=== PATIENT | female | born 1965 | race Caucasian/White ===

== ENCOUNTER 2016-10-27 11:37 | Emergency (ER) | payer OTHER, BC ==
[2016-10-27] MEDS ORDERED: Sodium Chloride 0.9% 1,000 ML IV SCH (11:45)
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
[2016-10-27] MEDS ORDERED: Sodium Chloride 0.9% 10 ML Syringe FLUSH PRN (12:04)
[2016-10-27] MEDS ORDERED: Iopamidol 755 Mg/ML 100 ML Bottle IVPUSH ONE (12:04)
[2016-10-27] MEDS ORDERED: Iopamidol 755 MG/ML 50 ML Bottle IVPUSH ONE (12:04)
[2016-10-27] MEDS ORDERED: Sodium Chloride 0.9% 100 ML IV SCH (12:15)
[2016-10-27] MEDS ORDERED: HYDROmorphone 1 MG/ML Syringe IVPUSH ONE (12:52)
[2016-10-27] MEDS ORDERED: Metoclopramide 10 MG/2 ML SDV IVPUSH ONE (12:52)
--- NOTE | 2016-10-27 12:52 | CT ---
Head CT Technique: Multiple axial sections through the brain were obtained. Intravenous contrast was not utilized. Comparison: Previous head CT study of 08/08/16. Findings: Ventricles along with basal cisterns and sulci over the convexities are within normal limits for the patient's age. No abnormal parenchymal densities are seen. No evidence of intracranial hemorrhage. No midline shift or mass effect is seen. Bone window settings were reviewed which shows no acute calvarial abnormality. Visualized sinuses are clear. Impression: 1. No acute intracranial abnormality is appreciated. MRI brain could be considered to further evaluate patient's symptoms. Diagnostic code #1
[2016-10-27] MEDS ORDERED: Ketorolac 30 MG/ML SDV IVPUSH SCH (13:00)
--- NOTE | 2016-10-27 13:13 | CT ---
CT chest Technique: Multiple axial sections were obtained through the chest. Intravenous contrast was utilized. Study has been performed as an angiogram protocol. Additional imaging was obtained through the abdomen through the aortic bifurcation. Comparison: Thoracic aorta shows no aneurysmal dilatation. No dissection is seen. Visualized pulmonary arteries show no pulmonary embolism. No pericardial thickening is seen. No mediastinal or hilar mass or adenopathy is seen. No axillary adenopathy is seen. Lung shows mild emphysematous change. Lungs otherwise are clear. No pleural effusions or pneumothorax is seen. Bone window settings were reviewed which shows previous thoracic spine surgery. Mild scattered degenerative change within the spine is also seen. Liver shows fatty infiltration. Spleen appears within normal limits. Adrenal glands show no nodule. Kidneys show symmetric contrast enhancement without hydronephrosis or mass. Previous cholecystectomy is noted. Aorta shows no dissection or aneurysm. No retroperitoneal adenopathy or mesenteric abnormalities are seen. Impression: 1. No findings of aortic aneurysm or dissection. 2. No findings of discrete pulmonary embolism. 3. Other incidental findings as noted above. Nothing acute is appreciated on CT study of the chest and abdomen. Diagnostic code #2
--- NOTE | 2016-10-27 13:39 | CR ---
Chest: Portable view of the chest was obtained. Comparison: Previous chest x-ray of 11/05/15. Heart size and mediastinum are normal. Lungs are clear. Bony structures are grossly intact. Previous thoracic spine surgery is seen. Impression: 1. Nothing acute identified on portable chest x-ray. Diagnostic code #2
[2016-10-27 13:42] VITALS: BP 144/82
== END 2016-10-27 14:12 | disposition home or self-care (01) ==
LOC: JD.ED 11:37
DX: R41.82 Altered mental status, unspecified (principal); R07.9 Chest pain, unspecified; R51 Headache; T46.3X5A Adverse effect of coronary vasodilators, initial encounter; F17.200 Nicotine dependence, unspecified, uncomplicated; Z79.899 Other long term (current) drug therapy; I10 Essential (primary) hypertension; N39.46 Mixed incontinence; M19.90 Unspecified osteoarthritis, unspecified site; F41.9 Anxiety disorder, unspecified; D68.0 Von Willebrand disease
CPT/HCPCS: 36415; 70450; 71010; 71275; 80053; 80306; 81001; 82553; 84484; 85025; 85379; 85610; 93005; 96361; 96374; 96375; 99285; J1170; J1885; J2765; J7030; J7040; J7050; Q9967

== ENCOUNTER 2016-10-31 17:06 | Emergency (ER) | payer OTHER, BC ==
[2016-10-31] MEDS ORDERED: Haloperidol Lactate 5 MG/ML SDV IM ONE (17:41)
[2016-10-31] MEDS ORDERED: Ketorolac 30 MG/ML SDV IM ONE (17:41)
[2016-10-31] MEDS ORDERED: diphenhydrAMINE 50 MG Cap PO ONE (17:41)
[2016-10-31] MEDS ORDERED: Ondansetron 4 MG Tab.DIS PO ONE (17:42)
[2016-10-31] MEDS ORDERED: Metoclopramide 5 MG Tab PO ONE (17:50)
[2016-10-31] MEDS ORDERED: Ketorolac 30 MG/ML SDV IVPUSH ONE (17:55)
[2016-10-31] MEDS ORDERED: Haloperidol Lactate 5 MG/ML SDV IVPUSH ONE (17:55)
[2016-10-31] MEDS ORDERED: Metoclopramide 10 MG/2 ML SDV IVPUSH ONE (17:55)
[2016-10-31] MEDS ORDERED: Sodium Chloride 0.9% 10 ML Syringe FLUSH PRN (17:58)
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
[2016-10-31 18:53] VITALS: BP 120/60
== END 2016-10-31 18:54 | disposition home or self-care (01) ==
LOC: JD.ED 17:06
DX: G43.909 Migraine, unspecified, not intractable, without status migrainosus (principal); F17.210 Nicotine dependence, cigarettes, uncomplicated; I10 Essential (primary) hypertension; F41.9 Anxiety disorder, unspecified; Z90.49 Acquired absence of other specified parts of digestive tract; Z90.710 Acquired absence of both cervix and uterus; Z85.41 Personal history of malignant neoplasm of cervix uteri; Z98.890 Other specified postprocedural states; Z79.899 Other long term (current) drug therapy
CPT/HCPCS: 93005; 96374; 96375; 99284; A9270; J1630; J1885; J2765; J7050

== ENCOUNTER 2017-10-25 10:54 | Emergency (ER) | payer BC ==
[2017-10-25 11:13] VITALS: BP 138/87
[2017-10-25] MEDS ORDERED: Dextrose 5%-0.9% NaCl 1,000 ML IV SCH (11:45)
--- NOTE | 2017-10-25 12:05 | EDM.PDOC ---
<Haydee Roy - Last Filed: 10/25/17 12:13> ED HPI GENERAL MEDICAL PROBLEM - General Chief Complaint: Gastrointestinal Problem Stated Complaint: ENLARGED SPLEEN AND LIVER SENT BY CLINIC Time Seen by Provider: 10/25/17 11:45 Source of Information: Reports: Patient History Limitations: Reports: No Limitations - History of Present Illness INITIAL COMMENTS - FREE TEXT/NARRATIVE: Patient is a 52 YO female who presents today due to RUQ and LUQ abdominal pain. She was seen by RAHUL Constantino who did a work-up including abdominal CT. She was told her liver and spleen were enlarged and that she needed to be seen in the ER for further evaluation and possible admission. Patient states the pain started 7-10 days ago in the RUQ and LUQ. Pain is described as constant, pressure and fullness. She reports nausea but denies vomiting. She reports diarrhea that started on Sunday. She approximates 10 bounts of watery diarrhea which has continued for 5 days. After receiving oral contrast yesterday, she had more diarrhea which has not relieved the pain at all. She denies blood in the stool. Patient has had 2 rounds of treatment for Hep C. She ended treatment in 2012 and has been in remission. She states the pain she is experiencing now is similar to the pain she was experiencing when Hep C was diagnosed. She states it feels like her liver and spleen are "swollen". She feels like she is unable to take a deep breath due to the pain in her abdomen. She has history of cholecystectomy, appendectomy and total hysterectomy. She denies recent antibiotics or change in medications. She denies fever, chest pain, shortness of breath, or cough. generalized abdomen Pain Score (Numeric/FACES): 5 - Related Data Allergies Allergy/AdvReac Type Severity Reaction Status Date / Time No Known Allergies Allergy Verified 10/25/17 11:13 Home Meds: Home Meds ALPRAZolam [Alprazolam] 1 mg PO BID PRN 08/08/16 [History] Cyclobenzaprine [Flexeril] 10 mg PO TID PRN 08/08/16 [History] Estrogens, Conjugated [Premarin] 0.625 mg PO DAILY 10/27/16 [History] oxyCODONE HCl/Acetaminophen [Percocet 10-325 mg Tablet] 10 - 325 mg PO QID PRN 10/27/16 [History] Escitalopram Oxalate 20 mg PO DAILY 10/25/17 [History] Polyethylene Glycol 3350 [Miralax] 527 gm PO ASDIRECTED #1 powder 10/25/17 [Rx] Past Medical History HEENT History: Reports: Impaired Vision Other HEENT History: wears glasses. ruptured left ear drum 3x. 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 2013 and 2014 back surgeries Neurological History: Reports: Headaches, Chronic Psychiatric History: Reports: Anxiety Other Psychiatric History: denies depression Hematologic History: Reports: Bleeding Disorder Other Hematologic History: von Willebrand disease Oncologic (Cancer) History: Reports: Cervix Other Oncologic History: cervical cancer in 1984 Dermatologic History: Reports: None - Infectious Disease History Infectious Disease History: Reports: Hepatitis C - Past Surgical History GI Surgical History: Reports: Appendectomy, Cholecystectomy Female Surgical History: Reports: Hysterectomy, Salpingo-Oophorectomy Social & Family History - Family History Family Medical History: Noncontributory Cardiac: Reports: CT Oncologic: Reports: Brain, Breast Other Oncologic Family History: stomach cancer. - Tobacco Use Smoking Status *Q: Current Every Day Smoker Years of Tobacco use: 35 Packs/Tins Daily: 1 Used Tobacco, but Quit: No Second Hand Smoke Exposure: No - Caffeine Use Caffeine Use: Reports: Coffee - Alcohol Use Days Per Week of Alcohol Use: 1 Number of Drinks Per Day: 3 Total Drinks Per Week: 3 - Recreational Drug Use Recreational Drug Use: No - Living Situation & Occupation Living situation: Reports: , with Spouse Occupation: Unemployed ED ROS GENERAL - Review of Systems Review Of Systems: See Below Constitutional: Reports: Decreased Appetite. Denies: Fever, Chills Respiratory: Reports: No Symptoms Cardiovascular: Reports: No Symptoms GI/Abdominal: Reports: Abdominal Pain, Diarrhea, Decreased Appetite, Nausea. Denies: Bloody Stool, Vomiting : Reports: No Symptoms Skin: Reports: No Symptoms Neurological: Reports: No Symptoms Psychiatric: Reports: No Symptoms ED EXAM, GI/ABD - Physical Exam Exam: See Below Exam Limited By: No Limitations General Appearance: Alert, WD/WN, No Apparent Distress, Other (patient appears to be resting comfortably) Eyes: Bilateral: EOMI Throat/Mouth: Normal Inspection, Normal Lips, Normal Teeth, Normal Gums, Normal Oropharynx, Normal Voice Head: Atraumatic Respiratory/Chest: No Respiratory Distress, Lungs Clear, Normal Breath Sounds Cardiovascular: Normal Peripheral Pulses, Regular Rate, Rhythm, No Murmur GI/Abdominal Exam: Soft, No Mass, Distended, Tender (RUQ and LUQ tender to palpation), Other (decreased bowel sounds). No: Rebound Neurological: Alert, Oriented, CN II-XII Intact, Normal Cognition, No Motor/ Sensory Deficits Psychiatric: Normal Affect, Normal Mood Skin Exam: Warm, Dry, Intact, Normal Color, No Rash Course - Vital Signs Last Recorded V/S: Last Vital Signs Temp 36.4 C 10/25/17 11:00 Pulse 78 10/25/17 11:00 Resp 18 10/25/17 11:00 BP 138/87 10/25/17 11:00 Pulse Ox 99 10/25/17 11:00 - Orders/Labs/Meds Labs: Laboratory Tests 10/25/17 10/25/17 10/25/17 Range/Units 12:00 12:00 12:00 WBC 8.18 (3.98-10.04) K/mm3 RBC 5.03 (3.98-5.22) M/mm3 Hgb 15.4 (11.2-15.7) gm/L Hct 46.0 H (34.1-44.9) % MCV 91.5 (79.4-94.8) fl MCH 30.6 (25.6-32.2) pg MCHC 33.5 (32.2-35.5) g/dl RDW Std Deviation 45.8 (36.4-46.3) fL Plt Count 239 (182-369) K/mm3 MPV 9.5 (9.4-12.3) fl Neut % (Auto) 59.6 (34.0-71.1) % Lymph % (Auto) 30.0 (19.3-51.7) % [place] % (Auto) 6.1 (4.7-12.5) % Eos % (Auto) 3.8 (0.7-5.8) Baso % (Auto) 0.4 (0.1-1.2) % Neut # (Auto) 4.88 (1.56-6.13) K/mm3 Lymph # (Auto) 2.45 (1.18-3.74) K/mm3 [place] # (Auto) 0.50 H (0.24-0.36) K/mm3 Eos # (Auto) 0.31 (0.04-0.36) K/mm3 Baso # (Auto) 0.03 (0.01-0.08) K/mm3 Sodium 137 (136-145) mEq/L Potassium 3.7 (3.5-5.1) mEq/L Chloride 101 (98-107) mEq/L Carbon Dioxide 29 (21-32) mEq/L Anion Gap 10.7 (5-15) BUN 4 L (7-18) mg/dL Creatinine 0.8 (0.55-1.02) mg/dL Est Cr Clr Drug Dosing 74.02 mL/min Estimated GFR (MDRD) > 60 (>60) mL/min BUN/Creatinine Ratio 5.0 L (14-18) Glucose 91 (74-106) mg/dL Calcium 9.0 (8.5-10.1) mg/dL Magnesium 2.1 (1.8-2.4) mg/dl Total Bilirubin 0.2 (0.2-1.0) mg/dL AST 21 (15-37) U/L ALT 26 (14-59) U/L Alkaline Phosphatase 151 H (46-116) U/L C-Reactive Protein 3.3 H* (<1.0) mg/dL Total Protein 7.5 (6.4-8.2) g/dl Albumin 3.7 (3.4-5.0) g/dl Globulin 3.8 gm/dL Albumin/Globulin Ratio 1.0 (1-2) Lipase (73-393) U/L 10/25/17 Range/Units 12:00 WBC (3.98-10.04) K/mm3 RBC (3.98-5.22) M/mm3 Hgb (11.2-15.7) gm/L Hct (34.1-44.9) % MCV (79.4-94.8) fl MCH (25.6-32.2) pg MCHC (32.2-35.5) g/dl RDW Std Deviation (36.4-46.3) fL Plt Count (182-369) K/mm3 MPV (9.4-12.3) fl Neut % (Auto) (34.0-71.1) % Lymph % (Auto) (19.3-51.7) % [place] % (Auto) (4.7-12.5) % Eos % (Auto) (0.7-5.8) Baso % (Auto) (0.1-1.2) % Neut # (Auto) (1.56-6.13) K/mm3 Lymph # (Auto) (1.18-3.74) K/mm3 [place] # (Auto) (0.24-0.36) K/mm3 Eos # (Auto) (0.04-0.36) K/mm3 Baso # (Auto) (0.01-0.08) K/mm3 Sodium (136-145) mEq/L Potassium (3.5-5.1) mEq/L Chloride (98-107) mEq/L Carbon Dioxide (21-32) mEq/L Anion Gap (5-15) BUN (7-18) mg/dL Creatinine (0.55-1.02) mg/dL Est Cr Clr Drug Dosing mL/min Estimated GFR (MDRD) (>60) mL/min BUN/Creatinine Ratio (14-18) Glucose (74-106) mg/dL Calcium (8.5-10.1) mg/dL Magnesium (1.8-2.4) mg/dl Total Bilirubin (0.2-1.0) mg/dL AST (15-37) U/L ALT (14-59) U/L Alkaline Phosphatase (46-116) U/L C-Reactive Protein (<1.0) mg/dL Total Protein (6.4-8.2) g/dl Albumin (3.4-5.0) g/dl Globulin gm/dL Albumin/Globulin Ratio (1-2) Lipase 82 (73-393) U/L Meds: Medications Discontinued Medications Generic Name Dose Route Start Last Admin Trade Name Ruma PRN Reason Stop Dose Admin Hydromorphone HCl 0.5 mg 10/25/17 12:06 10/25/17 12:16 Dilaudid IVPUSH 10/25/17 12:07 0.5 mg ONETIME ONE Administration Dextrose/Sodium Chloride 1,000 mls @ 999 mls/hr 10/25/17 11:45 10/25/17 12:04 Dextrose 5%-Normal Saline IV 999 mls/hr ASDIRECTED DON Administration Magnesium Citrate 180 ml 10/25/17 14:21 10/25/17 14:32 Citrate Of Magnesia PO 10/25/17 14:22 180 ml ONETIME ONE Administration Metoclopramide HCl 7.5 mg 10/25/17 12:07 10/25/17 12:15 Reglan IVPUSH 10/25/17 12:08 7.5 mg ONETIME ONE Administration Departure - Departure Disposition: Home, Self-Care 01 Clinical Impression: Constipation by delayed colonic transit Abdominal pain Qualifiers: Abdominal location: generalized Qualified Code(s): R10.84 - Generalized abdominal pain - Discharge Information Prescriptions: Polyethylene Glycol 3350 [Miralax] 527 gm PO ASDIRECTED #1 powder Instructions: Constipation, Adult, [id number], Abdominal Pain, Adult, Easy-to -Read Referrals: Aaron Constantino PA-C [Primary Care Provider] - Forms: ED Department Discharge Additional Instructions: Evaluation in the emergency him today in regards to persistent abdominal pain for the last several days. Lab work and CT that were done yesterday through the clinic were reviewed through the ED today. The CT done at that time showed a normal liver no sign of portal hypertension .Your spleen is elongated but is not enlarged. The entire colon was filled with stool on that CT scan done yesterday. With the oral contrast media under your bowels moved several times after he got home yesterday. Repeat x-ray of the evident today reveals that there is still stool and contrast media within the right hemicolon basically from the pelvis up to the liver on the right side. the rest of the colon did manage to get cleaned out yesterday. Lab tests were all completely normal with no sign of liver involvement or recurrence of hepatitis C. you did receive a liter of IV fluids while you in the ED but lab work did not reveal any signs of significant volume depletion or dehydration My treatment suggestion is to take Citroma or magnesium citrate 6 ounces by mouth next with 4-6 ounces of juice of choice once this usually will start work in 1-4 hours at your bowels will usually move 1-4 times often ending in further diarrhea but should provide cleanse of the right hemicolon. This in turn should relieve your right upper quadrant abdominal pain. I would suggest that you consider use of MiraLAX powder 17 g or 1 scoop daily or every other day to keep her bowel function regular after this. She usually works quite well to prevent constipation issues. Follow up with personal care provider or return to the ED if any further problems occur. <Stan Fuller - Last Filed: 10/25/17 19:01> ED HPI GENERAL MEDICAL PROBLEM - History of Present Illness Onset: Gradual Onset Date: 10/22/17 (Has had diffuse abdominal pain for about a week but it became much worse 3 days ago.) Duration: Day(s): Location: Reports: Abdomen (Particularly right upper quadrant and right flank.) Quality: Reports: Ache Severity: Moderate (Rates the pain as 7 or 8 out of 10.) Improves with: Reports: None Worsens with: Reports: Breathing Context: Denies: Activity, Exercise, Sick Contact, Trauma, Other Associated Symptoms: Reports: Fever/Chills, Headaches, Loss of Appetite (Please she is running a low-grade fever), Malaise, Nausea/Vomiting (Mild nausea). Denies: No Other Symptoms, Chest Pain, Cough, cough w sputum, Diaphoresis, Rash , Seizure, Shortness of Breath, Syncope Treatments MIS SPECIALIST: Reports: Other (see below) (She does not take NSAIDs or acetaminophen due to liver disease.) Past Medical History - Infectious Disease History Infectious Disease History: Reports: Hepatitis C (Treated twice in the past with anti-viral treatment. Last treatment was 5 years ago she's been tested twice since and has negative hepatitis C virus in her system. Last checkup was ) Course - Radiology Interpretation Free Text/Narrative:: 52-year-old female presents to the ED with diffuse upper abdominal pain. She is known to her contracted hepatitis C greater than 10 years ago and received initial treatment for this 10 years ago. Once new medications became available she was retreated 5 years ago and apparently had complete eradication of hep C virus from her system. She had abdominal pain yesterday and did see Aaron KAY in the clinic. He did lab work and CT scan of the abdomen. The CT revealed an elongated spleen but it is not actually enlarged. The liver itself also appears to be normal with no signs of cirrhosis. Is no sign of portal hypertension. She did have a large amount of stool throughout the entire colon. She reported that she had quite a bit of bowel movement after the oral contrast was given when she went home. She will return to clinic this morning having continued right upper quadrant dull pain. The concerned that is her liver. Liver function studies done yesterday were all within normal limits. Plan 1 view the added to be done will repeat labs to be done. Patient feels that due to her pain she not been eating and drinking well and therefore will have D5 normal saline running at open to rehydrate her. She does not look dehydrated. Pain relief will be Dilaudid 0.5 mg IV with Reglan 7.5 mg IV. - Re-Assessments/Exams Free Text/Narrative Re-Assessment/Exam: 10/25/17 12:47 KUB reveals retained contrast in stool throughout the entire right hemicolon. The stool that was present in most of the transverse colon and descending colon is now gone. Labs are pending. 10/25/17 13:38 Labs reveal a normal white count at 8.18 with 60% neutrophils and no band cells. Hemoglobin is 15.4 with hematocrit of 46.0. Sodium is 137 with a potassium of 3.7. Chloride is 101 with a bicarbonate 29. And a gap is normal at 10.7. BUN is 4. Creatinine is normal at 0.8. Glucose is 91. Calcium is 9.0. Magnesium is normal at 2.1. Bilirubin today is 0.2. AST is 21. AST is 26. Alkalne phosphatase minimally elevated 151. C-reactive protein is 3.3. 10/25/17 14:23 discussed the findings with the patient. She is resting much more comfortably since she had intravenous analgesia. The only finding was the right hemicolon constipation persisting. It is still full of contrast media as well. Labs do not show any sign of dehydration or active infective process. Treatment therefore be magnesium citrate 6 ounces or 180 mils by mouth mixed with 4-6 ounces of juice of choice taken once. This should start to work in 1-4 hours and provides right colon cleanse. She relieve her abdominal pain as well. Suggested going on MiraLAX powder 17 g every day or every other day to keep her bowels regular. Follow-up if not markedly improved after bowel cleanse. Departure - Departure Time of Disposition: 14:24 Condition: Fair
[2017-10-25] MEDS ORDERED: HYDROmorphone 0.5 MG/0.5 ML SYRINGE IVPUSH ONE (12:06)
[2017-10-25] MEDS ORDERED: Metoclopramide 10 MG/2 ML SDV IVPUSH ONE (12:07)
--- NOTE | 2017-10-25 13:14 | CR ---
Abdomen: Supine view of the abdomen was obtained. Comparison: Prior abdominal CT exam of 10/24/17. Contrast is noted within the right colon from prior CT exam. Surgical clips are seen from prior cholecystectomy. Surgical clip is seen overlying the lower right L5 vertebral body. Calcifications are seen within the pelvis compatible with phleboliths. Previous lower lumbar spine surgery is noted. Bowel gas pattern is normal. Impression: 1. Incidental findings. Diagnostic code #2
[2017-10-25] MEDS ORDERED: Magnesium Citrate Solution 296 ML Bottle PO ONE (14:21)
== END 2017-10-25 14:40 | disposition home or self-care (01) ==
LOC: JD.ED 10:54
DX: K59.01 Slow transit constipation (principal); I10 Essential (primary) hypertension; F17.210 Nicotine dependence, cigarettes, uncomplicated; Z79.899 Other long term (current) drug therapy
CPT/HCPCS: 36415; 74018; 80053; 83690; 83735; 85025; 86140; 96361; 96374; 96375; 99284; A9270; J1170; J2765; J7042

== ENCOUNTER 2017-10-26 18:09 | Emergency (ER) | payer BC ==
[2017-10-26 18:20] VITALS: BP 123/70
--- NOTE | 2017-10-26 18:31 | EDM.PDOC ---
ED HPI GENERAL MEDICAL PROBLEM - General Chief Complaint: Chest Pain Stated Complaint: [facility] Time Seen by Provider: 10/26/17 18:30 Source of Information: Reports: Patient - History of Present Illness INITIAL COMMENTS - FREE TEXT/NARRATIVE: Patient is brought here today by the [facility] for evaluation of chest pain radiating to LUE. Patient states that her pain came on suddenly around 4: 30 PM today. She was sitting in the chair, not anxious or exerting herself. She denies any associated dyspnea. Patient notes occasional cough she. She does smoke cigarettes daily, approximately one pack per day. She has had some abdominal pain to the right upper quadrant that has been there for several days. She has associated nausea with this. The nausea is not unchanged today than it was from previous. She has a history of hepatitis C which was treated. Patient was evaluated in the emergency room yesterday for constipation. She did drink a bottle of magnesium citrate last night has had some loose stool since that time. Patient reports that she has not had anything to eat today. Chest Pain Score (Numeric/FACES): 4 Headache Pain Score (Numeric/FACES): 9 - Related Data Allergies Allergy/AdvReac Type Severity Reaction Status Date / Time No Known Allergies Allergy Verified 10/26/17 18:13 Home Meds: Home Meds ALPRAZolam [Alprazolam] 1 mg PO BID PRN 08/08/16 [History] Cyclobenzaprine [Flexeril] 10 mg PO TID PRN 08/08/16 [History] Estrogens, Conjugated [Premarin] 0.625 mg PO DAILY 10/27/16 [History] oxyCODONE HCl/Acetaminophen [Percocet 10-325 mg Tablet] 10 - 325 mg PO QID PRN 10/27/16 [History] Escitalopram Oxalate 20 mg PO DAILY 10/25/17 [History] Polyethylene Glycol 3350 [Miralax] 527 gm PO ASDIRECTED #1 powder 10/25/17 [Rx] Past Medical History HEENT History: Reports: Impaired Vision Other HEENT History: wears glasses. ruptured left ear drum 3x. 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 2013 and 2014 back surgeries Neurological History: Reports: Headaches, Chronic Psychiatric History: Reports: Anxiety Other Psychiatric History: denies depression Hematologic History: Reports: Bleeding Disorder Other Hematologic History: von Willebrand disease Oncologic (Cancer) History: Reports: Cervix Other Oncologic History: cervical cancer in 1984 Dermatologic History: Reports: None - Infectious Disease History Infectious Disease History: Reports: Hepatitis C - Past Surgical History GI Surgical History: Reports: Appendectomy, Cholecystectomy, Other (See Below) Female Surgical History: Reports: Hysterectomy, Salpingo-Oophorectomy Social & Family History - Family History Family Medical History: Noncontributory Cardiac: Reports: [place] Oncologic: Reports: Brain, Breast Other Oncologic Family History: stomach cancer. - Tobacco Use Smoking Status *Q: Current Every Day Smoker Years of Tobacco use: 25 Packs/Tins Daily: 0.5 Used Tobacco, but Quit: No Second Hand Smoke Exposure: No - Caffeine Use Caffeine Use: Reports: Coffee - Alcohol Use Days Per Week of Alcohol Use: 1 Number of Drinks Per Day: 3 Total Drinks Per Week: 3 - Recreational Drug Use Recreational Drug Use: No - Living Situation & Occupation Living situation: Reports: , with Spouse Occupation: Unemployed ED ROS GENERAL - Review of Systems Review Of Systems: See Below Constitutional: Denies: Fever, Chills, Malaise, Weakness, Fatigue, Decreased Appetite HEENT: Reports: No Symptoms Respiratory: Reports: No Symptoms Cardiovascular: Reports: Chest Pain. Denies: Blood Pressure Problem, Dyspnea on Exertion, Edema, Lightheadedness, Palpitations GI/Abdominal: Reports: Abdominal Pain, Constipation, Diarrhea, Nausea. Denies: Vomiting Musculoskeletal: Reports: No Symptoms Skin: Reports: No Symptoms Neurological: Reports: No Symptoms ED EXAM, GENERAL - Physical Exam Exam: See Below Exam Limited By: No Limitations General Appearance: Alert, WD/WN, No Apparent Distress Throat/Mouth: Normal Inspection, Normal Oropharynx Neck: Normal Inspection, Supple, Non-Tender Respiratory/Chest: No Respiratory Distress, Lungs Clear, Normal Breath Sounds, No Accessory Muscle Use Cardiovascular: Normal Peripheral Pulses, Regular Rate, Rhythm, No Murmur GI/Abdominal: Normal Bowel Sounds, Soft, Tender (RUQ tenderness) Neurological: Alert, Oriented Psychiatric: Normal Affect, Normal Mood Skin Exam: Warm, Dry, Intact. No: Jaundice Course - Vital Signs Last Recorded V/S: Last Vital Signs Temp 99.1 F 10/26/17 18:16 Pulse 77 10/26/17 18:16 Resp 16 10/26/17 18:16 BP 123/70 10/26/17 18:16 Pulse Ox 99 10/26/17 18:16 - Orders/Labs/Meds Orders: Active Orders 24 hr Category Date Time Status EKG 12 Lead [EKG Documentation Completion] [RC] STAT Care 10/26/17 20:44 Active EKG Documentation Completion [RC] STAT Care 10/26/17 18:24 Active CXR [Chest 2V] [CR] Stat Exams 10/26/17 18:55 Ordered Sodium Chloride 0.9% [Normal Saline] 1,000 ml Med 10/26/17 18:56 Active IV ONETIME Medication Orders Sodium Chloride (Normal Saline) 1,000 mls @ 250 mls/hr IV ONETIME ONE Stop: 10/26/17 22:55 Last Admin: 10/26/17 19:08 Dose: 250 mls/hr Labs: Laboratory Tests 10/26/17 10/26/17 10/26/17 Range/Units 19:25 19:25 19:25 WBC 7.38 (3.98-10.04) K/mm3 RBC 4.75 (3.98-5.22) M/mm3 Hgb 14.8 (11.2-15.7) gm/L Hct 43.7 (34.1-44.9) % MCV 92.0 (79.4-94.8) fl MCH 31.2 (25.6-32.2) pg MCHC 33.9 (32.2-35.5) g/dl RDW Std Deviation 45.2 (36.4-46.3) fL Plt Count 259 (182-369) K/mm3 MPV 9.3 L (9.4-12.3) fl Neutrophils % (Manual) 36 L (40-60) % Band Neutrophils % 0 (0-10) % Lymphocytes % (Manual) 54 H (20-40) % Atypical Lymphs % 0 % Monocytes % (Manual) 1 L (2-10) % Eosinophils % (Manual) 6 H (0.7-5.8) % Basophils % (Manual) 3 H (0.1-1.2) Platelet Estimate Adequate Plt Morphology Comment Normal RBC Morph Comment Normal D-Dimer, Quantitative 0.26 (0.19-0.50) mg/L Sodium 137 (136-145) mEq/L Potassium 3.8 (3.5-5.1) mEq/L Chloride 104 (98-107) mEq/L Carbon Dioxide 28 (21-32) mEq/L Anion Gap 8.8 (5-15) BUN 5 L (7-18) mg/dL Creatinine 0.7 (0.55-1.02) mg/dL Est Cr Clr Drug Dosing 84.59 mL/min Estimated GFR (MDRD) > 60 (>60) mL/min BUN/Creatinine Ratio 7.1 L (14-18) Glucose 84 (74-106) mg/dL Calcium 9.0 (8.5-10.1) mg/dL Total Bilirubin 0.4 (0.2-1.0) mg/dL GGT 67 H (5-55) U/L AST 18 (15-37) U/L ALT 26 (14-59) U/L Alkaline Phosphatase 137 H (46-116) U/L Troponin I < 0.017 (0.00-0.056) ng/mL C-Reactive Protein 3.6 H* (<1.0) mg/dL Total Protein 7.3 (6.4-8.2) g/dl Albumin 3.5 (3.4-5.0) g/dl Globulin 3.8 gm/dL Albumin/Globulin Ratio 0.9 L (1-2) //18 Range/Units 21:05 WBC (3.98-10.04) K/mm3 RBC (3.98-5.22) M/mm3 Hgb (11.2-15.7) gm/L Hct (34.1-44.9) % MCV (79.4-94.8) fl MCH (25.6-32.2) pg MCHC (32.2-35.5) g/dl RDW Std Deviation (36.4-46.3) fL Plt Count (182-369) K/mm3 MPV (9.4-12.3) fl Neutrophils % (Manual) (40-60) % Band Neutrophils % (0-10) % Lymphocytes % (Manual) (20-40) % Atypical Lymphs % % Monocytes % (Manual) (2-10) % Eosinophils % (Manual) (0.7-5.8) % Basophils % (Manual) (0.1-1.2) Platelet Estimate Plt Morphology Comment RBC Morph Comment D-Dimer, Quantitative (0.19-0.50) mg/L Sodium (136-145) mEq/L Potassium (3.5-5.1) mEq/L Chloride (98-107) mEq/L Carbon Dioxide (21-32) mEq/L Anion Gap (5-15) BUN (7-18) mg/dL Creatinine (0.55-1.02) mg/dL Est Cr Clr Drug Dosing mL/min Estimated GFR (MDRD) (>60) mL/min BUN/Creatinine Ratio (14-18) Glucose (74-106) mg/dL Calcium (8.5-10.1) mg/dL Total Bilirubin (0.2-1.0) mg/dL GGT (5-55) U/L AST (15-37) U/L ALT (14-59) U/L Alkaline Phosphatase (46-116) U/L Troponin I < 0.017 (0.00-0.056) ng/mL C-Reactive Protein (<1.0) mg/dL Total Protein (6.4-8.2) g/dl Albumin (3.4-5.0) g/dl Globulin gm/dL Albumin/Globulin Ratio (1-2) Meds: Medications Generic Name Dose Route Start Last Admin Trade Name Freq PRN Reason Stop Dose Admin Sodium Chloride 1,000 mls @ 250 mls/hr 10/26/17 18:56 10/26/17 19:08 Normal Saline IV 10/26/17 22:55 250 mls/hr ONETIME ONE Administration Discontinued Medications Generic Name Dose Route Start Last Admin Trade Name Freq PRN Reason Stop Dose Admin Hydromorphone HCl 0.5 mg 10/26/17 18:55 10/26/17 19:09 Dilaudid IVPUSH 10/26/17 18:56 0.5 mg ONETIME ONE Administration Hydromorphone HCl 0.5 mg 10/26/17 19:44 10/26/17 19:51 Dilaudid IVPUSH 10/26/17 19:45 0.5 mg ONETIME ONE Administration Ondansetron HCl 4 mg 10/26/17 18:55 10/26/17 19:09 Zofran IVPUSH 10/26/17 18:56 4 mg ONETIME ONE Administration - Re-Assessments/Exams Free Text/Narrative Re-Assessment/Exam: After 0.5 mg Dilaudid 2 patient is resting comfortably. She is sipping on water. She is now mostly concerned about her headache which is similar to her chronic headaches for which she is under pain management contract. Chest x-ray was unremarkable, official radiologist report is pending. WBC 7,380 with 36% neutrophils and no bands. Alkaline phosphatase is elevated at 137 which is a bit lower than it has been. CRP is increased to 3.6. D-dimer 0.26 and troponin is negative. Low suspicion for cardiac etiology. Will repeat troponin and EKG at 2100 hrs. which is 5 hours after symptom onset and 2 hours after last test. 10/26/17 20:08 Repeat EKG demonstrates no acute changes. Repeat troponin is negative. Will discharge patient home. She will follow-up with her primary provider next week or return to the emergency room if needed. 10/26/17 22:01 Departure - Departure Time of Disposition: 21:55 Disposition: Home, Self-Care 01 Condition: Good Clinical Impression: Atypical chest pain Headache Qualifiers: Headache type: unspecified Headache chronicity pattern: chronic headache Intractability: not intractable Qualified Code(s): R51 - Headache Instructions: General Headache Without Cause, Nonspecific Chest Pain, Easy-to- Read Referrals: PCP,None [Ordering Only Provider] - Forms: ED Department Discharge Additional Instructions: You were evaluated in the emergency room tonight for chest pain. The exam including EKG and lab work was essentially normal. I recommend you follow up with your primary provider next week or certainly return to the emergency room if a worsening symptoms. - My Orders Last 24 Hours: My Active Orders 10/26/17 18:24 EKG Documentation Completion [RC] STAT 10/26/17 18:55 CXR [Chest 2V] [CR] Stat 10/26/17 18:56 Sodium Chloride 0.9% [Normal Saline] 1,000 ml IV ONETIME 10/26/17 20:44 EKG 12 Lead [EKG Documentation Completion] [RC] STAT - Assessment/Plan Last 24 Hours: My Active Orders 10/26/17 18:24 EKG Documentation Completion [RC] STAT 10/26/17 18:55 CXR [Chest 2V] [CR] Stat 10/26/17 18:56 Sodium Chloride 0.9% [Normal Saline] 1,000 ml IV ONETIME 10/26/17 20:44 EKG 12 Lead [EKG Documentation Completion] [RC] STAT
[2017-10-26] MEDS ORDERED: Ondansetron 4 MG/2 ML SDV IVPUSH ONE (18:55)
[2017-10-26] MEDS ORDERED: HYDROmorphone 0.5 MG/0.5 ML SYRINGE IVPUSH ONE ×2 (18:55→19:44)
[2017-10-26] MEDS ORDERED: Sodium Chloride 0.9% 1,000 ML IV ONE (18:56)
--- NOTE | 2017-10-27 16:37 | CR ---
Chest: Two views of the chest were obtained. Comparison: Prior chest x-ray of 10/27/[address] of 10/27/16. Heart size and mediastinum are within normal limits. Previous lumbar spine surgery is noted. Lungs are clear with no acute parenchymal densities. Surgical clips are noted within the upper abdomen. Impression: 1. Incidental findings. Nothing acute is seen on two-view chest x-ray. Diagnostic code #2
== END 2017-10-26 22:06 | disposition home or self-care (01) ==
LOC: JD.ED 18:09
DX: R07.89 Other chest pain (principal); R51 Headache; I10 Essential (primary) hypertension; F17.210 Nicotine dependence, cigarettes, uncomplicated; Z79.899 Other long term (current) drug therapy
CPT/HCPCS: 36415; 71046; 80053; 82977; 84484; 85025; 85379; 86140; 93005; 96361; 96374; 96375; 96376; 99285; J1170; J2405; J7040; 99284

== ENCOUNTER 2018-09-18 11:43 | Emergency (ER) | payer BC ==
[2018-09-18] MEDS ORDERED: Sodium Chloride 0.9% 10 ML Syringe FLUSH PRN (11:58)
[2018-09-18] MEDS ORDERED: Ondansetron 4 MG/2 ML SDV IVPUSH ONE (11:58)
[2018-09-18] MEDS ORDERED: HYDROmorphone 1 MG/ML Syringe IVPUSH ONE ×3 (12:00→14:24)
[2018-09-18] MEDS ORDERED: Sodium Chloride 0.9% 1,000 ML IV SCH (12:00)
[2018-09-18] MEDS ORDERED: Ketorolac 30 MG/ML SDV IVPUSH ONE (12:00)
--- NOTE | 2018-09-18 12:59 | CT ---
CT abdomen and pelvis Technique: Multiple axial sections were obtained from below the diaphragm inferiorly through the pubic symphysis. Intravenous and oral contrast not utilized. Study has been performed as a ureteral stone protocol. Comparison: Prior contrast enhanced CT exam of 10/24/17 is available. Findings: Small portion of the visualized lung bases shows nothing acute. Liver shows mild fatty infiltration. Spleen appears within normal limits. Adrenal glands show no nodule. Pancreas shows no nodule. Kidneys show no abnormal calcifications. No ureteral dilatation is seen. No ureteral stone is identified. Aorta shows no aneurysm. No retroperitoneal adenopathy is seen. Surgical clips are noted from prior cholecystectomy. No mesenteric abnormalities are seen. Appendix is not visualized with certainty. No pelvic mass or adenopathy is seen. Previous hysterectomy is noted. Bone window settings were reviewed which appear within normal limits for the patient's age. Impression: 1. No renal calculi, ureteral dilatation or ureteral stone is seen. 2. Fatty infiltration within the liver and other incidental findings. Nothing acute is appreciated on noncontrast CT study of the abdomen and pelvis. Diagnostic code #2
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
[2018-09-18 15:49] VITALS: BP 119/77
== END 2018-09-18 15:35 ==
LOC: JD.ED 11:43
DX: N20.0 Calculus of kidney (principal); F41.9 Anxiety disorder, unspecified; F32.9 Major depressive disorder, single episode, unspecified; I10 Essential (primary) hypertension; Z79.899 Other long term (current) drug therapy
CPT/HCPCS: 36415; 74176; 80053; 81001; 82360; 83690; 85025; 96361; 96374; 96375; 96376; 99284; J1170; J1885; J2405; J7040

== ENCOUNTER 2018-09-20 12:35 | Emergency (ER) | payer BC ==
[2018-09-20 12:53] VITALS: BP 166/113
--- NOTE | 2018-09-20 13:57 | EDM.PDOC ---
ED HPI GENERAL MEDICAL PROBLEM - General Chief Complaint: Flank Pain Stated Complaint: KIDNEY PAIN Time Seen by Provider: 09/20/18 12:42 Source of Information: Reports: Patient, RN Notes Reviewed - History of Present Illness INITIAL COMMENTS - FREE TEXT/NARRATIVE: 53-year-old lady comes in with complaint of right flank and back discomfort. She states she does have history kidney stones. She was seen here in the ED 2 days ago for similar discomfort. Looking at that record she did have CT abdomen and pelvis which did not show a kidney stone did not show any right sided acute abnormality other than fatty infiltration of the liver. She had a white count 10 ,700 BUN 8 creatinine 0.9 estimated creatinine clearance 65 and estimated GFR greater than 60. Other chemistries as documented she did bring in a couple of small stones with her that she stated that she recently passed urine was completely negative, no RBCs, no evidence for infection. Today's she states she has been nauseated and vomiting. She states she has been taking the oral Dilaudid prescribed 2 days ago but it "is not helping" Right Flank Pain Score (Numeric/FACES): 10 - Related Data Allergies Allergy/AdvReac Type Severity Reaction Status Date / Time No Known Allergies Allergy Verified 09/20/18 12:46 Home Meds: Home Meds ALPRAZolam [Alprazolam] 1 mg PO BID PRN 08/08/16 [History] Cyclobenzaprine [Flexeril] 10 mg PO TID PRN 08/08/16 [History] Estrogens, Conjugated [Premarin] 0.625 mg PO DAILY 10/27/16 [History] oxyCODONE HCl/Acetaminophen [Percocet 10-325 mg Tablet] 10 - 325 mg PO QID PRN 10/27/16 [History] Escitalopram Oxalate 20 mg PO DAILY 10/25/17 [History] Polyethylene Glycol 3350 [Miralax] 527 gm PO ASDIRECTED #1 powder 10/25/17 [Rx] HYDROmorphone [Dilaudid] 2 mg PO Q6H PRN #10 tab 09/18/18 [Rx] Past Medical History HEENT History: Reports: Impaired Vision Other HEENT History: wears glasses. ruptured left ear drum 3x. 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 2013 and 2013 back surgeries Neurological History: Reports: Headaches, Chronic Psychiatric History: Reports: Anxiety Other Psychiatric History: denies depression Hematologic History: Reports: Bleeding Disorder Other Hematologic History: von Willebrand disease Oncologic (Cancer) History: Reports: Cervix Other Oncologic History: cervical cancer in 1984 Dermatologic History: Reports: None - Infectious Disease History Infectious Disease History: Reports: Hepatitis C - Past Surgical History GI Surgical History: Reports: Appendectomy, Cholecystectomy, Other (See Below) Female Surgical History: Reports: Hysterectomy, Salpingo-Oophorectomy Social & Family History - Family History Family Medical History: Noncontributory Cardiac: Reports: [place] Oncologic: Reports: Brain, Breast Other Oncologic Family History: stomach cancer. - Tobacco Use Smoking Status *Q: Current Every Day Smoker Years of Tobacco use: 20 Packs/Tins Daily: 1 - Caffeine Use Caffeine Use: Reports: Coffee - Recreational Drug Use Recreational Drug Use: No - Living Situation & Occupation Living situation: Reports: , with Spouse Occupation: Unemployed ED ROS GENERAL - Review of Systems Review Of Systems: See Below Constitutional: Denies: Fever, Chills HEENT: Reports: No Symptoms Respiratory: Denies: Shortness of Breath, Pleuritic Chest Pain Cardiovascular: Denies: Chest Pain GI/Abdominal: Reports: Abdominal Pain, Nausea (Right flank), Vomiting Musculoskeletal: Reports: Back Pain (Right-sided) Skin: Reports: No Symptoms ED EXAM, RENAL/ - Physical Exam Exam: See Below General Appearance: Alert, Anxious, Moderate Distress Throat/Mouth: Normal Inspection Respiratory/Chest: No Respiratory Distress, Lungs Clear Cardiovascular: Regular Rate, Rhythm Back Exam: CVA Tenderness (R) (Mild) Neurological: Alert, No Motor/Sensory Deficits Skin Exam: Warm, Dry, Normal Color Course - Vital Signs Last Recorded V/S: Last Vital Signs Temp 97.6 F 09/20/18 12:49 Pulse 100 03/22/19 12:49 Resp 18 09/20/18 12:49 BP 166/113 H 09/20/18 12:49 Pulse Ox 98 09/20/18 12:49 - Re-Assessments/Exams Free Text/Narrative Re-Assessment/Exam: 09/20/18 13:54 Patient did become quite upset when I did start questioning her about the Dilaudid that she has "not working. I did discuss with her the findings 2 days ago of normal abdominal and pelvic CT, no evidence for active kidney stone, no evidence for other abnormality, normal urine, normal BUN/creatinine. I told her that we would go ahead and repeat lab work and repeat a urinalysis. Carlos morales went to take a phone call and after completing the phone call was advised that she had left her room and the department. Of note I also did research the [place] prescription drug monitoring program database and she did have a prescription of 112 oxycodone 10 mg prescribed every 2018. It also did show the Dilaudid 2 mg quantity of 10 filled 2 days ago. She did admit that she is under chronic pain management contract. Departure - Departure Time of Disposition: 13:40 Disposition: Home, Self-Care 01 Condition: Fair Clinical Impression: Chronic pain Qualifiers: Chronic pain type: chronic pain syndrome Qualified Code(s): G89.4 - Chronic pain syndrome - Discharge Information Referrals: Aaron Constantino PA-C [Primary Care Provider] - Forms: ED Department Discharge
== END 2018-09-20 13:33 | disposition home or self-care (01) ==
LOC: JD.ED 12:35
DX: G89.4 Chronic pain syndrome (principal); I10 Essential (primary) hypertension; F32.9 Major depressive disorder, single episode, unspecified; F41.9 Anxiety disorder, unspecified; F17.210 Nicotine dependence, cigarettes, uncomplicated; Z79.899 Other long term (current) drug therapy
CPT/HCPCS: 99282; 99283

== ENCOUNTER 2018-10-06 13:05 | Emergency (ER) | payer BC ==
[2018-10-06 13:31] VITALS: BP 166/95
--- NOTE | 2018-10-06 13:48 | EDM.PDOC ---
ED HPI GENERAL MEDICAL PROBLEM - General Chief Complaint: Bite:Animal, Insect Stated Complaint: SPIDER BITE GIVEN WRONG MED Time Seen by Provider: 10/06/18 13:48 - History of Present Illness INITIAL COMMENTS - FREE TEXT/NARRATIVE: 53-year-old female presents emergency room with swelling around her left eye. This started Sunday she thought she had a spider bite however cannot recall seeing a spider or an actual bite time she awoke and was some swelling in the area. She may have had some fevers but it was all subjective she has not checked this. She was seen in the clinic on Sunday and started on a Medrol Dosepak and Augmentin 875 twice daily and this continues to get worse. She called poison control in the advised her to come in patient stating she was started on the wrong antibiotics. 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: Other Medication(s) Other Treatments BUCKLE ATTACHER: oxy Generalized Pain Score (Numeric/FACES): 9 - Related Data Allergies Allergy/AdvReac Type Severity Reaction Status Date / Time No Known Allergies Allergy Verified 10/06/18 13:31 Home Meds: Home Meds ALPRAZolam [Alprazolam] 1 mg PO BID PRN 08/08/16 [History] Cyclobenzaprine [Flexeril] 10 mg PO TID PRN 08/08/16 [History] Estrogens, Conjugated [Premarin] 0.625 mg PO DAILY 10/27/16 [History] Escitalopram Oxalate 20 mg PO DAILY 10/25/17 [History] Polyethylene Glycol 3350 [Miralax] 527 gm PO ASDIRECTED #1 powder 10/25/17 [Rx] Amoxicillin/Potassium Clav [Augmentin 875-125 Tablet] 875 mg PO BID 10/06/18 [ History] methylPREDNISolone [Methylprednisolone] 4 mg PO QID 10/06/18 [History] oxyCODONE ER [OxyCONTIN] 10 mg PO QID PRN 10/06/18 [History] Past Medical History HEENT History: Reports: Impaired Vision Other HEENT History: wears glasses. ruptured left ear drum 3x. 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 2013 and 2013 back surgeries Neurological History: Reports: Headaches, Chronic Psychiatric History: Reports: Anxiety Other Psychiatric History: denies depression Hematologic History: Reports: Bleeding Disorder Other Hematologic History: von Willebrand disease Oncologic (Cancer) History: Reports: Cervix Other Oncologic History: cervical cancer in 1984 Dermatologic History: Reports: None - Infectious Disease History Infectious Disease History: Reports: Hepatitis C - Past Surgical History GI Surgical History: Reports: Appendectomy, Cholecystectomy, Other (See Below) Female Surgical History: Reports: Hysterectomy, Salpingo-Oophorectomy Social & Family History - Family History Family Medical History: Noncontributory Cardiac: Reports: [place] Oncologic: Reports: Brain, Breast Other Oncologic Family History: stomach cancer. - Tobacco Use Smoking Status *Q: Current Every Day Smoker Years of Tobacco use: 12 Packs/Tins Daily: 1 Used Tobacco, but Quit: No - Caffeine Use Caffeine Use: Reports: Coffee, Soda - Recreational Drug Use Recreational Drug Use: No - Living Situation & Occupation Living situation: Reports: , with Spouse Occupation: Unemployed ED ROS GENERAL - Review of Systems Review Of Systems: See Below Constitutional: Reports: Fever. Denies: Chills HEENT: Reports: Eye Pain Respiratory: Reports: No Symptoms Cardiovascular: Reports: No Symptoms GI/Abdominal: Reports: No Symptoms : Reports: No Symptoms Musculoskeletal: Reports: No Symptoms Skin: Reports: No Symptoms Neurological: Reports: No Symptoms Psychiatric: Reports: No Symptoms ED EXAM, ANIMAL BITE - Physical Exam Exam: See Below Exam Limited By: No Limitations General Appearance: Alert, No Apparent Distress Eye Exam: Left Eye: Normal Inspection (The eye itself looks okay but she's had significant swelling on the upper lid with an area of redness on the upper lateral eyebrow and lid.), Bilateral Eye: PERRL Ears: Normal External Exam, Normal Canal, Hearing Grossly Normal, Normal TMs Nose: Normal Inspection, Normal Mucosa, No Blood Throat/Mouth: Normal Inspection, Normal Lips, Normal Teeth, Normal Gums, Normal Oropharynx, Normal Voice, No Airway Compromise Head: Atraumatic, Normocephalic Neck: Normal Inspection, Supple, Non-Tender, Full Range of Motion, Other ( Developing area of fullness below her ear no clear-cut adenopathy noted). No: Lymphadenopathy (L), Lymphadenopathy (R) Respiratory/Chest: No Respiratory Distress, Lungs Clear, Normal Breath Sounds, No Accessory Muscle Use, Chest Non-Tender Cardiovascular: Regular Rate, Rhythm, No Edema, No Murmur Course - Vital Signs Last Recorded V/S: Last Vital Signs Temp 36.7 C 10/06/18 13:25 Pulse 94 10/06/18 13:25 Resp 15 10/06/18 13:25 BP 166/95 H 10/06/18 13:25 Pulse Ox 99 10/06/18 13:25 - Orders/Labs/Meds Labs: Laboratory Tests 10/06/18 10/06/18 Range/Units 14:37 14:37 WBC 9.49 (3.98-10.04) K/mm3 RBC 5.38 H (3.98-5.22) M/mm3 Hgb 16.9 H (11.2-15.7) gm/L Hct 49.3 H (34.1-44.9) % MCV 91.6 (79.4-94.8) fl MCH 31.4 (25.6-32.2) pg MCHC 34.3 (32.2-35.5) g/dl RDW Std Deviation 46.2 (36.4-46.3) fL Plt Count 282 (182-369) K/mm3 MPV 9.0 L (9.4-12.3) fl Neutrophils % (Manual) 82 H (40-60) % Band Neutrophils % 0 (0-10) % Lymphocytes % (Manual) 13 L (20-40) % Atypical Lymphs % 0 % Monocytes % (Manual) 5 (2-10) % Eosinophils % (Manual) 0 L (0.7-5.8) % Basophils % (Manual) 0 L (0.1-1.2) Platelet Estimate Adequate Plt Morphology Comment RBC Morph Comment Normal Sodium 139 (136-145) mEq/L Potassium 4.0 (3.5-5.1) mEq/L Chloride 102 (98-107) mEq/L Carbon Dioxide 26 (21-32) mEq/L Anion Gap 15.0 (5-15) BUN 8 (7-18) mg/dL Creatinine 0.9 (0.55-1.02) mg/dL Est Cr Clr Drug Dosing 65.05 mL/min Estimated GFR (MDRD) > 60 (>60) mL/min BUN/Creatinine Ratio 8.9 L (14-18) Glucose 106 (74-106) mg/dL Calcium 9.3 (8.5-10.1) mg/dL Total Bilirubin 0.3 (0.2-1.0) mg/dL AST 17 (15-37) U/L ALT 24 (14-59) U/L Alkaline Phosphatase 166 H (46-116) U/L C-Reactive Protein 0.7 (<1.0) mg/dL Total Protein 7.9 (6.4-8.2) g/dl Albumin 3.8 (3.4-5.0) g/dl Globulin 4.1 gm/dL Albumin/Globulin Ratio 0.9 L (1-2) Meds: Medications Discontinued Medications Generic Name Dose Route Start Last Admin Trade Name Stanleyq PRN Reason Stop Dose Admin Hydromorphone HCl 0.5 mg 10/06/18 14:28 10/06/18 14:44 Dilaudid IVPUSH 10/06/18 14:29 0.5 mg ONETIME ONE Administration Iopamidol 80 ml 10/06/18 14:31 10/06/18 15:29 Isovue-370 (76%) IV 10/06/18 14:32 80 ml ONETIME ONE Administration Ketorolac Tromethamine 15 mg 10/06/18 16:12 Toradol IVPUSH 10/06/18 16:13 ONETIME ONE Ondansetron HCl 4 mg 10/06/18 14:27 10/06/18 14:44 Zofran IVPUSH 10/06/18 14:28 4 mg ONETIME ONE Administration - Re-Assessments/Exams Free Text/Narrative Re-Assessment/Exam: 10/06/18 16:25 Laboratory evaluation is unrevealing because of the possibility of a orbital cellulitis versus preseptal cellulitis CT was obtained which is more consistent with a periorbital cellulitis I did discuss this with radiology. The patient will continue her Augmentin will start Bactrim DS 2 by mouth twice a day for 10 days to give her better staph coverage. Departure - Departure Time of Disposition: 16:17 Disposition: Home, Self-Care 01 Clinical Impression: Preseptal cellulitis of left upper eyelid - Discharge Information Referrals: Aaron Constantino PA-C [Primary Care Provider] - Forms: ED Department Discharge Additional Instructions: Emergency room with any questions problems or worsening symptoms. Follow-up with your regular provider on Sunday or Sunday. Continue taking the Augmentin and the Medrol Dosepak. We have started Bactrim take 2 twice daily until all gone. Use your routine pain medications at home as needed.
[2018-10-06] MEDS ORDERED: Ondansetron 4 MG/2 ML SDV IVPUSH ONE (14:27)
[2018-10-06] MEDS ORDERED: HYDROmorphone 1 MG/ML Syringe IVPUSH ONE (14:28)
[2018-10-06] MEDS ORDERED: Iopamidol 755 Mg/ML 200 ML Bottle IV ONE (14:31)
--- NOTE | 2018-10-06 15:28 | CT ---
Facial CT Technique: Multiple axial sections were obtained through the facial structures. Intravenous contrast was utilized. Reconstructed coronal and sagittal images were reviewed. Findings: Mild soft tissue swelling is seen around the left periorbital region. No fluid collections of abscess are seen. Paranasal sinuses are clear. No facial bone fracture is seen. Right and left globes are symmetric in size. No retrobulbar abnormality is seen. Extraocular muscles appear within normal limits. Impression: 1. Mild soft tissue swelling within the left periorbital region. 2. No extension of soft tissue swelling posterior to the left orbital septum is seen. 3. Other portions of the CT facial structures appears unremarkable. No abscess is seen. Diagnostic code #2
[2018-10-06] MEDS ORDERED: Ketorolac 15 MG/ML SDV IVPUSH ONE (16:12)
== END 2018-10-06 16:40 | disposition home or self-care (01) ==
LOC: JD.ED 13:05
DX: L03.213 Periorbital cellulitis (principal); H00.034 Abscess of left upper eyelid; I10 Essential (primary) hypertension; F41.9 Anxiety disorder, unspecified; F17.210 Nicotine dependence, cigarettes, uncomplicated; Z79.899 Other long term (current) drug therapy
CPT/HCPCS: 36415; 70487; 80053; 85007; 85027; 86140; 96374; 96375; 99284; J1170; J1885; J2405; Q9967

== ENCOUNTER 2018-10-08 10:18 | Emergency (ER) | payer BC ==
[2018-10-08 10:26] VITALS: BP 166/106
--- NOTE | 2018-10-08 11:14 | EDM.PDOC ---
ED HPI GENERAL MEDICAL PROBLEM - General Chief Complaint: ENT Problem Stated Complaint: L EYE PAIN Time Seen by Provider: 10/08/18 11:34 Source of Information: Reports: Patient, Old Records, RN Notes Reviewed History Limitations: Reports: No Limitations - History of Present Illness INITIAL COMMENTS - FREE TEXT/NARRATIVE: Patient is a 53-year-old female who presents to the ED for the evaluation of increasing left eye pain. She states that on Sunday she went to the walk-in clinic because she thought what she had was a spider bite near her left orbit, they started her on steroids and Augmentin at this time. She states that she did call poison control and they said if it was in fact a spider bite that she should be started on a different antibiotic, so she came to the ER, for reevaluation. She did have a CT done on Sunday in this ER and Dr. Quezada felt that she may have had a periorbital cellulitis in nature, so he started her on Bactrim. The patient states that her woke her up this morning and so that the swelling looked worse than it was in previous days and she notes that the pain is worsening as well. She states that she is having some shooting pains now, that extends down to her top left gum. She notes that now she notices some black spots in the middle of the lesions that weren't there prior as well. She also notes that she has some pain into her left eyeball. Left Eye Pain Score (Numeric/FACES): 6 - Related Data Allergies Allergy/AdvReac Type Severity Reaction Status Date / Time No Known Allergies Allergy Verified 10/08/18 10:28 Home Meds: Home Meds ALPRAZolam [Alprazolam] 1 mg PO BID PRN 08/08/16 [History] Cyclobenzaprine [Flexeril] 10 mg PO TID PRN 08/08/16 [History] Estrogens, Conjugated [Premarin] 0.625 mg PO DAILY 10/27/16 [History] Escitalopram Oxalate 20 mg PO DAILY 10/25/17 [History] Polyethylene Glycol 3350 [Miralax] 527 gm PO ASDIRECTED #1 powder 10/25/17 [Rx] Amoxicillin/Potassium Clav [Augmentin 875-125 Tablet] 875 mg PO BID 10/06/18 [ History] methylPREDNISolone [Methylprednisolone] 4 mg PO QID 10/06/18 [History] oxyCODONE ER [OxyCONTIN] 10 mg PO QID PRN 10/06/18 [History] Past Medical History HEENT History: Reports: Impaired Vision Other HEENT History: wears glasses. ruptured left ear drum 3x. 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 2013 and 2013 back surgeries Neurological History: Reports: Headaches, Chronic Psychiatric History: Reports: Anxiety Other Psychiatric History: denies depression Hematologic History: Reports: Bleeding Disorder Other Hematologic History: von Willebrand disease Oncologic (Cancer) History: Reports: Cervix Other Oncologic History: cervical cancer in 1984 Dermatologic History: Reports: None - Infectious Disease History Infectious Disease History: Reports: Hepatitis C - Past Surgical History GI Surgical History: Reports: Appendectomy, Cholecystectomy, Other (See Below) Female Surgical History: Reports: Hysterectomy, Salpingo-Oophorectomy Social & Family History - Family History Family Medical History: Noncontributory Cardiac: Reports: [place] Oncologic: Reports: Brain, Breast Other Oncologic Family History: stomach cancer. - Tobacco Use Smoking Status *Q: Current Every Day Smoker Years of Tobacco use: 12 Packs/Tins Daily: 1 - Caffeine Use Caffeine Use: Reports: Coffee, Soda - Recreational Drug Use Recreational Drug Use: No - Living Situation & Occupation Living situation: Reports: , with Spouse Occupation: Unemployed ED ROS ENT - Review of Systems Review Of Systems: See Below Constitutional: Reports: No Symptoms HEENT: Reports: Eye Pain (left), Glasses. Denies: Hearing Loss, Rhinitis, Sinus Problem, Throat Pain, Vertigo, Vision Change Respiratory: Reports: No Symptoms Cardiovascular: Reports: No Symptoms Endocrine: Reports: No Symptoms GI/Abdominal: Reports: No Symptoms : Reports: No Symptoms Musculoskeletal: Reports: No Symptoms Skin: Reports: No Symptoms Neurological: Reports: Headache. Denies: Numbness, Tingling Psychiatric: Reports: No Symptoms Hematologic/Lymphatic: Reports: No Symptoms Immunologic: Reports: No Symptoms ED EXAM, ENT - Physical Exam Exam: See Below Exam Limited By: No Limitations General Appearance: Alert, WD/WN, No Apparent Distress Eye Exam: Left Eye: Periorbital Changes (mild swelilng and erythema to left outer socket, with involvement into left upper eye lid), Bilateral Eye: EOMI, PERRL Ears: Normal External Exam, Normal Canal, Hearing Grossly Normal, Normal TMs Nose: Normal Inspection, Injected Turbinates (bilaterally) Mouth/Throat: Normal Inspection, Normal Gums, Normal Lips, Normal Oropharynx, Normal Teeth Head: Normocephalic, Facial Swelling (left outer eye socket) Neck: Normal Inspection, Supple, Non-Tender, Full Range of Motion Respiratory/Chest: No Respiratory Distress, Lungs Clear, Normal Breath Sounds, No Accessory Muscle Use, Chest Non-Tender Cardiovascular: Normal Peripheral Pulses, Regular Rate, Rhythm, No Murmur Extremities: Normal Inspection, Normal Capillary Refill Neurological: Alert, Oriented, CN II-XII Intact, Normal Cognition, No Motor/ Sensory Deficits Psychiatric: Normal Affect, Normal Mood Skin: Warm, Dry, Normal Color, Wound/Incision (1 area: located by distal portion just above left eye brow, 3 discrete lesions that are black in the center and has some mild erythema and swelling noted) Course - Vital Signs Last Recorded V/S: Last Vital Signs Temp 97.7 F 10/08/18 10:22 Pulse 97 10/08/18 10:22 Resp 18 10/08/18 10:22 BP 166/106 H 10/08/18 10:22 Pulse Ox 97 10/08/18 10:22 - Orders/Labs/Meds Labs: Laboratory Tests 10/08/18 10/08/18 Range/Units 12:16 12:16 WBC 6.48 (3.98-10.04) K/mm3 RBC 5.33 H (3.98-5.22) M/mm3 Hgb 16.7 H (11.2-15.7) gm/L Hct 48.6 H (34.1-44.9) % MCV 91.2 (79.4-94.8) fl MCH 31.3 (25.6-32.2) pg MCHC 34.4 (32.2-35.5) g/dl RDW Std Deviation 46.1 (36.4-46.3) fL Plt Count 225 (182-369) K/mm3 MPV 8.8 L (9.4-12.3) fl Neutrophils % (Manual) 80 H (40-60) % Band Neutrophils % 0 (0-10) % Lymphocytes % (Manual) 12 L (20-40) % Atypical Lymphs % 0 % Monocytes % (Manual) 5 (2-10) % Eosinophils % (Manual) 1 (0.7-5.8) % Basophils % (Manual) 2 H (0.1-1.2) Platelet Estimate Adequate Plt Morphology Comment Normal RBC Morph Comment Normal C-Reactive Protein 0.9 (<1.0) mg/dL Meds: Medications Discontinued Medications Generic Name Dose Route Start Last Admin Trade Name Freq PRN Reason Stop Dose Admin Ketorolac Tromethamine 30 mg 10/08/18 11:32 10/08/18 11:44 Toradol IM 10/08/18 11:33 30 mg ONETIME ONE Administration - Re-Assessments/Exams Free Text/Narrative Re-Assessment/Exam: 10/08/18 11:47 Patient presents to the ED for worsening left eye swelling. As I did not see her on Sunday I cannot attest to whether or not this is actually worsened. I was able to review the CT results, there was some mild swelling noted for which Dr. Quezada read as periorbital cellulitis. Her labs were within normal limits , her CRP was 0.7 and she did have a normal white count at that time. It would appear that the cellulitis may be inconsistent with her lab work results. She has not been dressing this with any type of antibiotic ointment or otherwise. She is not having any visual changes at this time, and the swelling appears to be stable. I did also order 30 mg of IM Toradol for pain relief. 10/08/18 12:56 Patient's labs have returned and are unremarkable, patient was reassured that sometimes in disease progresses that things may get worse before they get better. I did mitochondrial disorders counselor the patient on other concerning signs and symptoms for immediate return to the ED. She is to keep taking the antibiotics as prescribed along with the prednisone, I believe she had 1 day left. Departure - Departure Time of Disposition: 12:58 Disposition: Home, Self-Care 01 Condition: Fair Clinical Impression: Left facial pain, Periorbital cellulitis of left eye - Discharge Information *PRESCRIPTION DRUG MONITORING PROGRAM REVIEWED*: No *COPY OF PRESCRIPTION DRUG MONITORING REPORT IN PATIENT RICH: No Instructions: Cellulitis, Adult Referrals: Aaron Constantino PA-C [Primary Care Provider] - Forms: ED Department Discharge Additional Instructions: You have been evaluated in the ED today for your left facial pain. Please keep taking your antibiotics and other medications as previously prescribed, as these are likely to provide her some benefit in the next day or two if you are in fact suffering from periorbital cellulitis. Sometimes diseases can get worse before they get better. Your labs done today do not show any progression in disease, and fact the white blood cell count is lower today than it was on Sunday which is assuring. You may also use some topical antibiotic ointment on the wounds in question to see if this might not help provide further relief. You may take some pedr-swf-hgavpaf ibuprofen every 6 hours as needed for pain relief as well. Please return to the ED if your symptoms should change or worsen.
[2018-10-08] MEDS ORDERED: Ketorolac 30 MG/ML SDV IM ONE (11:32)
== END 2018-10-08 13:18 | disposition home or self-care (01) ==
LOC: JD.ED 10:18
DX: L03.213 Periorbital cellulitis (principal); R51 Headache; F17.210 Nicotine dependence, cigarettes, uncomplicated; Z79.899 Other long term (current) drug therapy
CPT/HCPCS: 36415; 85007; 85027; 86140; 96372; 99283; J1885

== ENCOUNTER 2019-03-17 17:30 | Emergency (ER) | payer BC ==
[2019-03-17 17:51] VITALS: BP 114/77; PULSE 86
[2019-03-17] MEDS ORDERED: Ketorolac 30 MG/ML SDV IM ONE (18:54)
--- NOTE | 2019-03-17 20:06 | EDM.PDOC ---
ED HPI GENERAL MEDICAL PROBLEM - General Chief Complaint: Lower Extremity Injury/Pain Stated Complaint: L HIP PAIN Time Seen by Provider: 03/17/19 18:24 Source of Information: Reports: Patient History Limitations: Reports: No Limitations - History of Present Illness INITIAL COMMENTS - FREE TEXT/NARRATIVE: Patient is a 53-year-old female who presents to the ED complaining of pain to left buttocks region. Patient states she fell twice on Sunday while bowling. Pain has grown increasingly worse over the past few days. States she' s been experiencing some intermittent numbness and tingling down her left leg. She has no pain present. She denies any foot drop or weakness noted to the left leg. She has full range of motion at the hip, left knee, and ankle. No foot drop noted. She did not hit her head nor injure her neck or back. She has a prior injury to her low back that did not require surgery. She is on chronic pain therapy with oxycodone and Flexeril. She states these medications are not improving her discomfort. She has not been using ice, heat, or any anti- inflammatories. She denies any abdominal pain, nausea vomiting, incontinence to urine or stool, saddle anesthesia, or any additional complaint. Left Hip Pain Score (Numeric/FACES): 8 - Related Data Allergies Allergy/AdvReac Type Severity Reaction Status Date / Time No Known Allergies Allergy Verified 03/17/19 17:51 Home Meds: Home Meds ALPRAZolam [Alprazolam] 1 mg PO BID PRN 08/08/16 [History] Cyclobenzaprine [Flexeril] 10 mg PO TID PRN 08/08/16 [History] Estrogens, Conjugated [Premarin] 0.625 mg PO DAILY 10/27/16 [History] Escitalopram Oxalate 20 mg PO DAILY 10/25/17 [History] Polyethylene Glycol 3350 [Miralax] 527 gm PO ASDIRECTED #1 powder 10/25/17 [Rx] methylPREDNISolone [Methylprednisolone] 4 mg PO QID 10/06/18 [History] oxyCODONE ER [OxyCONTIN] 10 mg PO QID PRN 10/06/18 [History] Past Medical History HEENT History: Reports: Impaired Vision Other HEENT History: wears glasses. ruptured left ear drum 3x. 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 2013 and 2014 back surgeries Neurological History: Reports: Headaches, Chronic Psychiatric History: Reports: Anxiety Other Psychiatric History: denies depression Hematologic History: Reports: Bleeding Disorder Other Hematologic History: von Willebrand disease Oncologic (Cancer) History: Reports: Cervix Other Oncologic History: cervical cancer in 1984 Dermatologic History: Reports: None - Infectious Disease History Infectious Disease History: Reports: Chicken Pox, Hepatitis C, Shingles - Past Surgical History GI Surgical History: Reports: Appendectomy, Cholecystectomy, Other (See Below) Female Surgical History: Reports: Hysterectomy, Salpingo-Oophorectomy, Other (See Below) Other Female Surgeries/Procedures: bladder adn rectal prolapse reconstruction surgery Social & Family History - Family History Family Medical History: Noncontributory Cardiac: Reports: [place] Oncologic: Reports: Brain, Breast Other Oncologic Family History: stomach cancer. - Tobacco Use Smoking Status *Q: Current Every Day Smoker Years of Tobacco use: 30 Packs/Tins Daily: 1 - Caffeine Use Caffeine Use: Reports: Coffee, Soda, Tea - Recreational Drug Use Recreational Drug Use: No - Living Situation & Occupation Living situation: Reports: , with Spouse Occupation: Unemployed Review of Systems - Review of Systems Review Of Systems: ROS reveals no pertinent complaints other than HPI. ED EXAM, GENERAL - Physical Exam Exam: See Below Exam Limited By: No Limitations General Appearance: Alert, WD/WN, No Apparent Distress Ears: Hearing Grossly Normal Nose: Normal Inspection Throat/Mouth: Normal Voice, No Airway Compromise Head: Atraumatic, Normocephalic Neck: Normal Inspection, Supple, Full Range of Motion Respiratory/Chest: No Respiratory Distress, Lungs Clear, Normal Breath Sounds, No Accessory Muscle Use Cardiovascular: Normal Peripheral Pulses, Regular Rate, Rhythm, No Murmur Peripheral Pulses: 2+: Radial (R) GI/Abdominal: Normal Bowel Sounds, Soft, Non-Tender Back Exam: Normal Inspection, Full Range of Motion. No: CVA Tenderness (L), CVA Tenderness (R), Paraspinal Tenderness, Vertebral Tenderness Extremities: Normal Inspection, Normal Range of Motion, Non-Tender (Lower extremities bilateral. She does have pain to the left buttocks region no swelling, ecchymosis, or bony abnormalities noted. No SI joint discomfort.), No Pedal Edema Neurological: Alert, Oriented, CN II-XII Intact, Normal Cognition, No Motor/ Sensory Deficits Psychiatric: Normal Affect, Normal Mood Skin Exam: Warm, Dry, Intact, Normal Color, No Rash Course - Vital Signs Last Recorded V/S: Last Vital Signs Temp 98.2 F 03/17/19 17:47 Pulse 86 03/17/19 17:47 Resp 18 03/17/19 17:47 BP 114/77 03/17/19 17:47 Pulse Ox 96 03/17/19 17:47 - Orders/Labs/Meds Orders: Active Orders 24 hr Category Date Time Status Hip Min 2V or 3V Lt [CR] Stat Exams 03/17/19 18:54 Taken Meds: Medications Discontinued Medications Generic Name Dose Route Start Last Admin Trade Name Freq PRN Reason Stop Dose Admin Ketorolac Tromethamine 30 mg 03/17/19 18:54 03/17/19 19:19 Toradol IM 03/17/19 18:55 30 mg ONETIME ONE Administration - Re-Assessments/Exams Free Text/Narrative Re-Assessment/Exam: Patient is tender with palpation along the left buttocks region just posterior to the left hip. Per patient there is no ecchymosis or swelling. I palpated all the bony structures of the left leg with no concerns for bony abnormalities. She has full range of motion of the left knee and ankle. With no bony point tenderness or swelling noted. Sensation fully intact. Patient did get up and walk to the bathroom with no difficulties. I have ordered x-ray of the left hip and also Toradol IM. 2006 Patient walked back to the x-ray suite on her own accord with no significant discomfort noted. X-ray of the left hip revealed no acute bony abnormalities. Final interpretation is pending.Reviewed with Dr. Lee. Patient has a contusion to the left buttocks/hip region. Return precautions discussed with patient while she was outside smoking. Patient left the ER on her own accord to smoke. Discharge instructions as documented. Departure - Departure Time of Disposition: 20:08 Disposition: Home, Self-Care 01 Condition: Good Clinical Impression: Left buttock pain, Hip pain, left Contusion Qualifiers: Encounter type: initial encounter Contusion area: pelvic area Qualified Code(s) : S30.0XXA - Contusion of lower back and pelvis, initial encounter - Discharge Information Instructions: Hip Pain, Contusion, [id number] Referrals: Aaron Constantino PA-C [Primary Care Provider] - Forms: ED Department Discharge Additional Instructions: As discussed findings on x-ray did not reveal any acute bony abnormalities. You have a contusion to the left buttock/left hip region. Treatment will be symptomatic care including taking all the pain medications as prescribed for your chronic back pain. In addition I suggest taking Aleve 1-2 tabs twice daily. May utilize awha-[id number] lidocaine patch, ice to affected area 3 times a day 30 minutes in duration do not apply ice directly on the skin from the next 2 days, and then heat and ice in alternating fashion thereafter. Refrain from any activities that cause worsening discomfort. Follow-up with PCP over the next 3-5 days for reevaluation. May return back to the ED at any time he develop any new or worsening symptoms. - My Orders Last 24 Hours: My Active Orders 03/17/19 18:54 Hip Min 2V or 3V Lt [CR] Stat - Assessment/Plan Last 24 Hours: My Active Orders 03/17/19 18:54 Hip Min 2V or 3V Lt [CR] Stat
--- NOTE | 2019-03-18 09:39 | CR ---
Left hip: AP and frog-leg lateral views of the left hip were obtained. Comparison: No previous study. Joint space within the left hip is preserved. Sacroiliac joints are unremarkable. Single surgical clip is seen within the right upper pelvis. No fracture or other abnormality is seen. Impression: 1. Nothing acute is seen on two-view left hip exam. Diagnostic code #1
== END 2019-03-17 20:55 | disposition home or self-care (01) ==
LOC: JD.ED 17:30
DX: S30.0XXA Contusion of lower back and pelvis, initial encounter (principal); I10 Essential (primary) hypertension; F41.9 Anxiety disorder, unspecified; F17.210 Nicotine dependence, cigarettes, uncomplicated; Z85.41 Personal history of malignant neoplasm of cervix uteri; Z79.899 Other long term (current) drug therapy; W19.XXXA Unspecified fall, initial encounter
CPT/HCPCS: 73502; 96372; 99283; J1885

== ENCOUNTER 2020-01-01 08:54 | Day surgery (SDC) | payer BC, OTHER ==
[~2020-01-01 08:54] MED LIST: Lactated Ringers 1,000 ML IV SCH; Lidocaine 1%/Sod Bicarbonate in NS 8.4% 1 ML Syringe IDERM PRN; Sodium Chloride 0.9% 10 ML Syringe FLUSH PRN
--- NOTE | 2020-01-01 10:02 | PCM.PREANE ---
Preanesthetic Assessment - Procedure Proposed Procedure: diiag egd and diag colonoscopy - Anesthesia/Transfusion/Family Hx Anesthesia History: Prior Anesthesia Without Reaction Family History of Anesthesia Reaction: No Transfusion History: Prior Transfusion Without Reaction Type of Transfusion Reactions: Reports: Unknown - Review of Systems General: No Symptoms Pulmonary: No Symptoms Cardiovascular: No Symptoms Gastrointestinal: Abdominal Pain (for about 3-4 weeks) Neurological: No Symptoms Other: Reports: Liver Problems (hep c- from blood transfusioin), Depression, Anxiety - Physical Assessment NPO Status Date: 01/01/20 NPO Status Time: 05:00 (finished prep) Vital Signs: Last Vital Signs Temp 98.2 F 01/01/20 09:05 Pulse 77 01/01/20 09:05 Resp 16 01/01/20 09:05 BP 136/73 01/01/20 09:05 Pulse Ox 97 01/01/20 09:05 Height: 5 ft 5 in Weight: 80.739 kg ASA Class: 2 Mental Status: Alert & Oriented x3 Airway Class: Mallampati = 1 Dentition: Reports: Normal Dentition Thyro-Mental Finger Breadths: 3 Mouth Opening Finger Breadths: 3 ROM/Head Extension: Full Lungs: Clear to Auscultation, Normal Respiratory Effort Cardiovascular: Regular Rate, Regular Rhythm - Lab Values: Laboratory Last Values COVID-19 PCR Not detected (NOT DETECT) 12/29/19 10:30 - Allergies Allergies/Adverse Reactions: Allergies Allergy/AdvReac Type Severity Reaction Status Date / Time No Known Allergies Allergy Verified 01/01/20 09:45 - Blood Blood Available: No - Acknowledgements Anesthesia Type Planned: MAC Pt an Appropriate Candidate for the Planned Anesthesia: Yes Alternatives and Risks of Anesthesia Discussed w Pt/Guardian: Yes Pt/Guardian Understands and Agrees with Anesthesia Plan: Yes PreAnesthesia Questionnaire HEENT History: Reports: Impaired Vision Other HEENT History: wears glasses. ruptured left ear drum 3x. 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 2013 and 2014 back surgeries Neurological History: Reports: Headaches, Chronic, Migraines Psychiatric History: Reports: Anxiety, Depression Other Psychiatric History: denies depression Endocrine/Metabolic History: Reports: Obesity/BMI 30+, Vitamin D Deficiency Hematologic History: Reports: Bleeding Disorder, Blood Transfusion(s) Other Hematologic History: von Willebrand disease Immunologic History: Reports: None Oncologic (Cancer) History: Reports: Cervix Other Oncologic History: cervical cancer in 1984 Dermatologic History: Reports: None - Infectious Disease History Infectious Disease History: Reports: Chicken Pox, Hepatitis C, Shingles - Past Surgical History Head Surgeries/Procedures: Reports: None Cardiovascular Surgical History: Reports: None Respiratory Surgical History: Reports: None GI Surgical History: Reports: Appendectomy, Cholecystectomy, Other (See Below) ( bowels shut when born so needed operation) Female Surgical History: Reports: Hysterectomy, Salpingo-Oophorectomy, Other (See Below) Other Female Surgeries/Procedures: bladder adn rectal prolapse reconstruction surgery Endocrine Surgical History: Reports: None Musculoskeletal Surgical History: Reports: Other (See Below) Dermatological Surgical History: Reports: None - SUBSTANCE USE Smoking Status *Q: Current Every Day Smoker Tobacco Use Within Last Twelve Months: Cigarettes Second Hand Smoke Exposure: Yes Days Per Week of Alcohol Use: 0 Recreational Drug Use History: No - HOME MEDS Home Medications: Home Meds Estrogens, Conjugated [Premarin] 0.625 mg PO DAILY 10/27/16 [History] Escitalopram Oxalate 20 mg PO DAILY 10/25/17 [History] oxyCODONE ER [OxyCONTIN] 10 mg PO QID PRN 10/06/18 [History] Naloxone HCl [Narcan] 1 dose AGAPITO ASDIRECTED PRN 12/31/19 [History] - CURRENT (IN HOUSE) MEDS Current Meds: Current Medications Lactated Ringer's (Ringers, Lactated) 1,000 mls @ 125 mls/hr IV ASDIRECTED DON Stop: 01/01/20 23:00 Last Admin: 01/01/20 09:10 Dose: 125 mls/hr Documented by: Lidocaine/Sodium Bicarbonate (Buffered Lidocaine 1% In Ns 8.4%) 0.25 ml IDERM ONETIME PRN PRN Reason: Prior to IV Start Stop: 01/01/20 18:00 Last Admin: 01/01/20 09:10 Dose: 0.25 ml Documented by: Sodium Chloride (Saline Flush) 10 ml FLUSH ASDIRECTED PRN PRN Reason: Keep Vein Open Stop: 01/01/20 18:00
[2020-01-01] MEDS ORDERED: Propofol 200 MG/20 ML SDV ONE ×3 (10:23→11:31)
[2020-01-01] MEDS ORDERED: fentaNYL 100 MCG/2 ML SDV ONE (10:24)
[2020-01-01] MEDS ORDERED: Lidocaine 1% 4 ML ONE (10:24)
--- NOTE | 2020-01-01 11:54 | PCM.PRNOTE ---
- Free Text/Narrative Note: Date: 01/01/2020 Procedure: diagnostic EGD and colonoscopy Indication: abdominal pain, history of peptic ulcer disease, last colonoscopy 10 years ago Endoscopist: Nitesh Ruiz MD Findings: Ileocecal valve visualized. Prep was fair. Detailed Report: The patient was taken to the endoscopy suite and placed in left lateral decubitus position. Time out was performed and monitored anesthesia care was initiated. A bite-block was placed, and the endoscope was inserted in the mouth and advanced to the duodenum. The second portion of the duodenum appeared grossly normal. A sample biopsy of the mucosa was obtained with cold forceps at the portion of the duodenal bulb. The pyloric antrum appeared normal as well, a sample was obtained at this site. There appeared to be some friability and erythematous change of the mucosa of the gastric body, and a sample biopsy was obtained here as well. Given the patient's history of von Willebrand disease, directed monopolar energy was used to ensure adequate hemostasis of biopsy sites. The distal esophageal mucosa appeared normal, with grossly normal Z line. A sample of distal esophageal mucosa was obtained with forceps as well. Air was evacuated, and the scope withdrawn. Next, attention was turned to colonoscopy. A single small external hemorrhoidal skin tag was noted on inspection of the anus. Digital rectal exam was unremarkable. The lubricated colonoscope was then inserted and advanced all the way to the cecum. The ileocecal valve was visualized. There appeared to be evidence of prior appendectomy. The prep was okay, there were lots of bubbles and a fair amount of turbid green fluid in certain portions of the colon. On slow withdrawal of the scope, mucosal surfaces were carefully inspected. Aside from a few polypoid lesions in the distal sigmoid, which appeared consistent grossly with hyperplastic polyps, no lesions were noted. 2 of the more prominent small polyps were biopsied with forceps, and bases fulgurated. Mild internal hemorrhoids noted on retroflexion of the scope within the rectum. A hypertrophied anal papilla was noted near 1 of the columns of Morgagni. Air was suctioned prior to withdrawal of the scope. The patient tolerated the procedure well. Nitesh Ruiz MD General Surgery
--- NOTE | 2020-01-01 11:59 | PCM48HPAN ---
Post Anesthesia Note - EVALUATION WITHIN 48HRS OF ANESTHETIC Vital Signs in Normal Range: Yes Patient Participated in Evaluation: Yes Respiratory Function Stable: Yes Airway Patent: Yes Cardiovascular Function Stable: Yes Hydration Status Stable: Yes Pain Control Satisfactory: Yes Nausea and Vomiting Control Satisfactory: Yes Mental Status Recovered: Yes Vital Signs: Last Vital Signs Temp 97.2 F 01/01/20 11:49 Pulse 63 01/01/20 11:49 Resp 18 01/01/20 11:49 BP 109/60 01/01/20 11:49 Pulse Ox 94 L 01/01/20 11:49
[2020-01-01 12:25] VITALS: BP 119/64; PULSE 62
== END 2020-01-01 12:37 | disposition home or self-care (01) ==
LOC: JD.SDS 08:54
PROVIDERS: ATTEND Surgery
DX: K63.5 Polyp of colon (principal); K29.50 Unspecified chronic gastritis without bleeding; B96.81 Helicobacter pylori [H. pylori] as the cause of diseases classified elsewhere; K64.4 Residual hemorrhoidal skin tags; K64.8 Other hemorrhoids; K62.89 Other specified diseases of anus and rectum; K21.9 Gastro-esophageal reflux disease without esophagitis; F41.9 Anxiety disorder, unspecified; F32.9 Major depressive disorder, single episode, unspecified; I10 Essential (primary) hypertension; E78.5 Hyperlipidemia, unspecified; G47.00 Insomnia, unspecified; E66.9 Obesity, unspecified; M17.0 Bilateral primary osteoarthritis of knee; E78.00 Pure hypercholesterolemia, unspecified; M19.071 Primary osteoarthritis, right ankle and foot; M19.072 Primary osteoarthritis, left ankle and foot; F17.210 Nicotine dependence, cigarettes, uncomplicated; Z68.30 Body mass index [BMI] 30.0-30.9, adult; Z79.899 Other long term (current) drug therapy; Z87.11 Personal history of peptic ulcer disease; Z86.2 Personal history of diseases of the blood and blood-forming organs and certain disorders involving the immune mechanism
CPT/HCPCS: 43239; 45380; J2001; J2704; J3010; J7120; 00813; U0002

== ENCOUNTER 2021-09-05 12:12 | Emergency (ER) | payer BC, MEDICAID ==
[2021-09-05] MEDS ORDERED: Sodium Chloride 0.9% 10 ML Syringe FLUSH PRN (12:48)
[2021-09-05 15:18] VITALS: BP 133/56; PULSE 68
== END 2021-09-05 15:05 | disposition home or self-care (01) ==
LOC: JD.ED 12:12
DX: R07.9 Chest pain, unspecified (principal); T42.6X5A Adverse effect of other antiepileptic and sedative-hypnotic drugs, initial encounter; T39.395A Adverse effect of other nonsteroidal anti-inflammatory drugs [NSAID], initial encounter; I10 Essential (primary) hypertension; M19.90 Unspecified osteoarthritis, unspecified site; E66.9 Obesity, unspecified; Z68.30 Body mass index [BMI] 30.0-30.9, adult; Z72.0 Tobacco use
CPT/HCPCS: 36415; 71045; 71045-26; 80053; 84484; 85025; 93005; 99284-25

== ENCOUNTER 2021-09-12 10:04 | Emergency (ER) | payer BC, MEDICAID ==
[2021-09-12 10:09] VITALS: BP 146/100; PULSE 54
[2021-09-12] MEDS ORDERED: Dextrose 5%-0.9% NaCl 1,000 ML IV SCH (10:45)
[2021-09-12 11:12] LABS: CORONAVIRUS COVID-19 NAA NEGATIVE (NEGATIVE)
[2021-09-12] MEDS ORDERED: Metoclopramide 10 MG/2 ML SDV IVPUSH ONE (11:15)
[2021-09-12] MEDS ORDERED: HYDROmorphone 0.5 MG/0.5 ML Syringe IVPUSH ONE (11:20)
== END 2021-09-12 12:50 | disposition home or self-care (01) ==
LOC: JD.ED 10:04
DX: R11.2 Nausea with vomiting, unspecified (principal); R19.7 Diarrhea, unspecified; I10 Essential (primary) hypertension; E66.9 Obesity, unspecified; Z68.23 Body mass index [BMI] 23.0-23.9, adult; Z72.0 Tobacco use; Z20.822 Contact with and (suspected) exposure to COVID-19
CPT/HCPCS: 0241U; 36415; 70450; 80053; 81001; 83690; 83735; 84443; 85025; 86140; 93005; 96374; 96375; 99285; J1170; J2765; J7042; 93010

== ENCOUNTER 2022-01-15 18:59 | Emergency (ER) | payer BC, MEDICAID ==
[2022-01-15 21:34] VITALS: BP 145/90; PULSE 85
[2022-01-15] MEDS ORDERED: HYDROmorphone 1 MG/ML Syringe IVPUSH ONE (21:48)
[2022-01-15] MEDS ORDERED: Ketorolac 30 MG/ML SDV IM ONE (22:57)
== END 2022-01-15 23:18 | disposition home or self-care (01) ==
LOC: JD.ED 18:59
DX: G89.18 Other acute postprocedural pain (principal); I10 Essential (primary) hypertension; M19.90 Unspecified osteoarthritis, unspecified site; E66.9 Obesity, unspecified; Z68.26 Body mass index [BMI] 26.0-26.9, adult; Z98.1 Arthrodesis status
CPT/HCPCS: 96372; 96374; 99283; J1170; J1885; 99282

== ENCOUNTER 2022-08-25 09:19 | Emergency (ER) | payer MEDICAID ==
[2022-08-25] MEDS ORDERED: Sodium Chloride 0.9% 10 ML Syringe FLUSH PRN (10:21)
[2022-08-25] MEDS ORDERED: Ondansetron 4 MG/2 ML SDV IVPUSH ONE (10:22)
[2022-08-25] MEDS ORDERED: Morphine 4 MG/ML Syringe IVPUSH ONE ×3 (10:22→13:55)
[2022-08-25 10:46] LABS: ESTIMATED GFR 86 mL/min (>60)
[2022-08-25] MEDS ORDERED: Sodium Chloride 0.9% 10 ML Syringe FLUSH ONE (10:59)
[2022-08-25] MEDS ORDERED: Iopamidol 612 MG/ML 100 ML Bottle IVPUSH ONE (10:59)
[2022-08-25 12:07] VITALS: BP 134/80; PULSE 62
[2022-08-25] MEDS ORDERED: Sodium Chloride 0.9% 1,000 ML IV ONE (14:04)
== END 2022-08-25 15:20 | disposition home or self-care (01) ==
LOC: JD.ED 09:19
DX: E86.0 Dehydration (principal); R10.84 Generalized abdominal pain; R19.7 Diarrhea, unspecified; I10 Essential (primary) hypertension; E66.9 Obesity, unspecified; Z72.0 Tobacco use; Z88.8 Allergy status to other drugs, medicaments and biological substances; Z79.899 Other long term (current) drug therapy
CPT/HCPCS: 36415; 74177; 80053; 81001; 83605; 83690; 84484; 85025; 86140; 87635; 93005; 96361; 96374; 96375; 96376; 99284; J2270; J2405; J3490; J7030; Q9967; U0002

== ENCOUNTER 2022-08-28 10:34 | Inpatient (IN) | payer MEDICAID ==
[2022-08-28] MEDS ORDERED: Sodium Chloride 0.9% 10 ML Syringe FLUSH PRN (11:21)
[2022-08-28] MEDS ORDERED: HYDROmorphone 1 MG/ML Syringe IVPUSH ONE ×2 (11:48→13:52)
[2022-08-28] MEDS ORDERED: Metoclopramide 10 MG/2 ML SDV IVPUSH ONE (11:48)
[2022-08-28] MEDS ORDERED: diphenhydrAMINE 50 MG/ML SDV IVPUSH ONE (11:49)
[2022-08-28] MEDS ORDERED: Dextrose 5%-Lactated Ringers 1,000 ML IV SCH (12:00)
[2022-08-28 12:01] LABS: ESTIMATED GFR 86 mL/min (>60)
[2022-08-28] MEDS ORDERED: Diatrizoate Meglumine/Diatrizoate Sodium 37% 120 ML Bottle PO ONE (12:52)
[2022-08-28] MEDS ORDERED: Pantoprazole 40 MG Vial IVPUSH ONE (15:04)
[2022-08-28] MEDS ORDERED: Acetaminophen 325 MG Tab PO PRN (16:26)
[2022-08-28] MEDS ORDERED: Docusate Sodium 100 MG Cap PO PRN (16:26)
[2022-08-28] MEDS ORDERED: hydrALAZINE 20 MG/ML SDV IVPUSH PRN (16:26)
[2022-08-28] MEDS ORDERED: LORazepam 2 MG/ML SDV IVPUSH PRN (16:48)
[2022-08-28] MEDS: Lactated Ringers 1,000 ML IV SCH (17:11)
[2022-08-28] MEDS: Nicotine 14 MG/24 Hr Patch TRDERM SCH (17:13)
[2022-08-28] MEDS: HYDROmorphone 0.5 MG/0.5 ML Syringe IVPUSH PRN ×2 (17:13→20:18)
[2022-08-28] MEDS: Heparin Sodium 5,000 Units/ML Vial SUBCUT SCH (17:30)
[2022-08-28] MEDS: Citalopram 20 MG Tab PO SCH (17:30)
[2022-08-28] MEDS: Metoclopramide 10 MG/2 ML SDV IVPUSH PRN (18:44)
[2022-08-28] MEDS: Acetaminophen/oxyCODONE 325-5 MG Tab PO PRN (20:23)
[2022-08-28] MEDS ORDERED: Cyclobenzaprine 10 MG Tab PO SCH (21:00)
[2022-08-28] MEDS ORDERED: Gabapentin 100 MG Cap PO SCH (21:00)
[2022-08-29] MEDS: HYDROmorphone 0.5 MG/0.5 ML Syringe IVPUSH PRN ×4 (00:01→10:05)
[2022-08-29] MEDS: Ondansetron 4 MG/2 ML SDV IVPUSH PRN ×2 (00:09→07:09)
[2022-08-29] MEDS: Heparin Sodium 5,000 Units/ML Vial SUBCUT SCH ×4 (00:09→15:42)
[2022-08-29] MEDS: Lactated Ringers 1,000 ML IV SCH ×2 (06:36→19:54)
[2022-08-29] MEDS: Psyllium Husk Powder Sugar Free 5.85 GM Packet PO PRN (07:09)
[2022-08-29] MEDS: Citalopram 20 MG Tab PO SCH (08:51)
[2022-08-29] MEDS: Nicotine 14 MG/24 Hr Patch TRDERM SCH (08:52)
[2022-08-29] MEDS: Acetaminophen/oxyCODONE 325-5 MG Tab PO PRN (09:15)
[2022-08-29] MEDS: Metoclopramide 10 MG/2 ML SDV IVPUSH PRN ×2 (10:56→19:54)
[2022-08-29] MEDS: HYDROmorphone 1 MG/ML Syringe IVPUSH PRN ×5 (12:25→23:54)
[2022-08-29] MEDS: ALPRAZolam 0.5 MG Tab PO PRN (21:36)
[2022-08-30] MEDS: HYDROmorphone 1 MG/ML Syringe IVPUSH PRN ×10 (03:14→23:52)
[2022-08-30] MEDS: Ondansetron 4 MG/2 ML SDV IVPUSH PRN ×2 (05:46→16:28)
[2022-08-30] MEDS: Psyllium Husk Powder Sugar Free 5.85 GM Packet PO PRN (05:50)
[2022-08-30] MEDS: Lactated Ringers 1,000 ML IV SCH ×2 (09:19→23:13)
[2022-08-30] MEDS: Citalopram 20 MG Tab PO SCH (09:20)
[2022-08-30] MEDS: Nicotine 14 MG/24 Hr Patch TRDERM SCH (09:21)
[2022-08-30] MEDS: Metoclopramide 10 MG/2 ML SDV IVPUSH PRN (11:19)
[2022-08-30] MEDS ORDERED: Lidocaine 4% 1 each Patch TOP SCH (17:00)
[2022-08-30] MEDS: ALPRAZolam 0.5 MG Tab PO PRN (17:21)
[2022-08-31] MEDS: ALPRAZolam 0.5 MG Tab PO PRN ×2 (00:01→20:37)
[2022-08-31] MEDS: Metoclopramide 10 MG/2 ML SDV IVPUSH PRN (00:02)
[2022-08-31] MEDS: Ondansetron 4 MG/2 ML SDV IVPUSH PRN ×2 (05:49→16:49)
[2022-08-31] MEDS: HYDROmorphone 1 MG/ML Syringe IVPUSH PRN ×6 (05:49→23:35)
[2022-08-31] MEDS: Citalopram 20 MG Tab PO SCH (09:14)
[2022-08-31] MEDS: Nicotine 14 MG/24 Hr Patch TRDERM SCH (09:15)
[2022-08-31] MEDS: Acetaminophen/oxyCODONE 325-5 MG Tab PO PRN ×2 (12:12→18:15)
[2022-08-31] MEDS: Lactated Ringers 1,000 ML IV SCH (13:59)
[2022-08-31] MEDS ORDERED: ALPRAZolam 0.25 MG Tab PO ONE (23:52)
[2022-09-01] MEDS: Metoclopramide 10 MG/2 ML SDV IVPUSH PRN ×2 (01:40→17:00)
[2022-09-01] MEDS: HYDROmorphone 1 MG/ML Syringe IVPUSH PRN ×10 (01:41→22:46)
[2022-09-01] MEDS: Acetaminophen/oxyCODONE 325-5 MG Tab PO PRN (01:45)
[2022-09-01] MEDS: Citalopram 20 MG Tab PO SCH (08:01)
[2022-09-01] MEDS: Nicotine 14 MG/24 Hr Patch TRDERM SCH (08:01)
[2022-09-01] MEDS ORDERED: Diatrizoate Meglumine/Diatrizoate Sodium 37% 120 ML Bottle PO ONE (11:26)
[2022-09-01] MEDS ORDERED: Iopamidol 612 MG/ML 100 ML Bottle IVPUSH ONE (11:26)
[2022-09-01] MEDS: ALPRAZolam 0.5 MG Tab PO PRN ×2 (11:27→22:47)
[2022-09-01] MEDS: Ondansetron 4 MG/2 ML SDV IVPUSH PRN (11:27)
[2022-09-01] MEDS ORDERED: Sodium Chloride 0.9% 10 ML Syringe FLUSH SCH (11:30)
[2022-09-01] MEDS: Sertraline 25 MG Tab PO SCH (17:22)
[2022-09-01] MEDS: Lactated Ringers 1,000 ML IV SCH (22:47)
[2022-09-02] MEDS: HYDROmorphone 1 MG/ML Syringe IVPUSH PRN ×10 (01:40→22:59)
[2022-09-02] MEDS: Metoclopramide 10 MG/2 ML SDV IVPUSH PRN ×3 (01:46→18:15)
[2022-09-02] MEDS: Ondansetron 4 MG/2 ML SDV IVPUSH PRN ×2 (07:09→16:05)
[2022-09-02] MEDS: Citalopram 20 MG Tab PO SCH (09:52)
[2022-09-02] MEDS: diphenhydrAMINE 25 MG Cap PO PRN ×2 (09:52→20:42)
[2022-09-02] MEDS: Sertraline 25 MG Tab PO SCH (09:53)
[2022-09-02] MEDS: Nicotine 14 MG/24 Hr Patch TRDERM SCH (09:53)
[2022-09-02] MEDS: Lactated Ringers 1,000 ML IV SCH (13:15)
[2022-09-02] MEDS: ALPRAZolam 0.5 MG Tab PO PRN (20:35)
[2022-09-03] MEDS: HYDROmorphone 1 MG/ML Syringe IVPUSH PRN ×10 (01:20→23:16)
[2022-09-03] MEDS: Lactated Ringers 1,000 ML IV SCH ×2 (01:24→14:43)
[2022-09-03] MEDS: Metoclopramide 10 MG/2 ML SDV IVPUSH PRN ×3 (01:29→16:36)
[2022-09-03] MEDS: ALPRAZolam 0.5 MG Tab PO PRN ×2 (08:46→21:06)
[2022-09-03] MEDS: Sertraline 25 MG Tab PO SCH (08:47)
[2022-09-03] MEDS: diphenhydrAMINE 25 MG Cap PO PRN ×2 (08:47→21:06)
[2022-09-03] MEDS: Citalopram 20 MG Tab PO SCH (08:47)
[2022-09-03] MEDS: Nicotine 14 MG/24 Hr Patch TRDERM SCH (08:48)
[2022-09-03] MEDS: Potassium Chloride 20 MEQ Tab.ER PO SCH (10:38)
[2022-09-03] MEDS: Ondansetron 4 MG/2 ML SDV IVPUSH PRN (12:11)
[2022-09-04] MEDS: HYDROmorphone 1 MG/ML Syringe IVPUSH PRN ×9 (01:38→23:58)
[2022-09-04] MEDS: Lactated Ringers 1,000 ML IV SCH ×2 (05:49→21:43)
[2022-09-04] MEDS: Metoclopramide 10 MG/2 ML SDV IVPUSH PRN ×2 (05:50→16:55)
[2022-09-04] MEDS: diphenhydrAMINE 25 MG Cap PO PRN ×2 (08:07→20:50)
[2022-09-04] MEDS: Sertraline 25 MG Tab PO SCH (08:07)
[2022-09-04] MEDS: Potassium Chloride 20 MEQ Tab.ER PO SCH (08:07)
[2022-09-04] MEDS: Citalopram 20 MG Tab PO SCH (08:07)
[2022-09-04] MEDS: Nicotine 14 MG/24 Hr Patch TRDERM SCH (08:08)
[2022-09-04] MEDS: ALPRAZolam 0.5 MG Tab PO PRN ×2 (09:14→20:50)
[2022-09-04] MEDS: Acetaminophen/HYDROcodone 325-10 MG Tab PO PRN ×3 (10:15→21:42)
[2022-09-04] MEDS: Ondansetron 4 MG/2 ML SDV IVPUSH PRN ×2 (11:33→20:48)
[2022-09-05] MEDS: Acetaminophen/HYDROcodone 325-10 MG Tab PO PRN ×2 (01:46→07:22)
[2022-09-05] MEDS: HYDROmorphone 1 MG/ML Syringe IVPUSH PRN ×2 (03:05→06:08)
[2022-09-05 05:47] VITALS: BP 127/45; PULSE 56
[2022-09-05] MEDS: Ondansetron 4 MG/2 ML SDV IVPUSH PRN (07:24)
[2022-09-05] MEDS ORDERED: Pantoprazole 40 MG Tab.CR PO SCH (09:00)
[2022-09-05] MEDS ORDERED: HYDROmorphone 1 MG/ML Syringe IVPUSH PRN (10:00)
== END 2022-09-05 07:58 | disposition left against medical advice (07) | DRG 439 ==
LOC: JD.ED 10:34 → JD.MS 16:12
PROVIDERS: ADMIT Internal Medicine; ATTEND Internal Medicine
DX: K85.20 Alcohol induced acute pancreatitis without necrosis or infection (principal); K90.9 Intestinal malabsorption, unspecified; K92.2 Gastrointestinal hemorrhage, unspecified; R19.7 Diarrhea, unspecified; K85.90 Acute pancreatitis without necrosis or infection, unspecified; M54.9 Dorsalgia, unspecified; M54.2 Cervicalgia; G89.29 Other chronic pain; M19.90 Unspecified osteoarthritis, unspecified site; F32.A Depression, unspecified; R32 Unspecified urinary incontinence; F10.20 Alcohol dependence, uncomplicated; H54.7 Unspecified visual loss; F17.200 Nicotine dependence, unspecified, uncomplicated; Z88.8 Allergy status to other drugs, medicaments and biological substances; E86.0 Dehydration; Z85.41 Personal history of malignant neoplasm of cervix uteri; K44.9 Diaphragmatic hernia without obstruction or gangrene; Z90.710 Acquired absence of both cervix and uterus; Z87.442 Personal history of urinary calculi; I10 Essential (primary) hypertension; D68.00 Von Willebrand disease, unspecified; E66.9 Obesity, unspecified; F17.210 Nicotine dependence, cigarettes, uncomplicated; Z79.899 Other long term (current) drug therapy; Z79.890 Hormone replacement therapy; Z90.49 Acquired absence of other specified parts of digestive tract
CPT/HCPCS: 36415; 74176; 80053; 81001; 83690; 83735; 85025; 86140; 96361; 96374; 96375; 96376; 99285; C9113; J1170 ×2; J1200; J2765; J3490; J7121; 74018; 74018-26; 74178; 74178-26; 80048; 84443; 85027; A9270-GY; J1644; J2405; J7120; Q9963; Q9967

== ENCOUNTER 2024-02-05 12:11 | Emergency (ER) | payer MEDICAID, OTHER ==
[2024-02-05] MEDS: Sodium Chloride 0.9% 10 ML Syringe FLUSH PRN (13:51)
[2024-02-05] MEDS: HYDROmorphone 0.5 MG/0.5 ML Syringe IVPUSH ONE ×5 (13:51→19:45)
[2024-02-05 14:01] LABS: A/G RATIO 0.9 (1-2); ALANINE AMINOTRANSFERASE,ALT 17 U/L (14-59); ALBUMIN 3.4 g/dl (3.4-5.0); ALKALINE PHOSPHATASE 163 U/L (46-116); ANION GAP 13.7 (5-15); ASPARTATE AMNIOTRANSFERASE,AST 15 U/L (15-37); BILIRUBIN TOTAL 0.2 mg/dL (0.2-1.0); BLOOD UREA NITROGEN,BUN 5 mg/dL (7-18); BUN/CREATININE RATIO 6.3 (14-18); CALCIUM 8.9 mg/dL (8.5-10.1); CARBON DIOXIDE,CO2 26 mEq/L (21-32); CHLORIDE,CL 104 mEq/L (98-107); CREATININE 0.8 mg/dL (0.55-1.02); ESTIMATED GFR 85 mL/min (>60); GLUCOSE RANDOM 97 mg/dL (70-99); POTASSIUM,K 3.7 mEq/L (3.5-5.1); SODIUM,NA 140 mEq/L (136-145)
[2024-02-05 14:02] LABS: BASOPHILS PERCENT AUTO 0.3 % (0.0-1.0); EOSINOPHILS ABSOLUTE AUTO 0.2 K/mm3 (0.0-0.4); EOSINOPHILS PERCENT AUTO 1.7 % (0.0-6.0); HEMATOCRIT 42.4 % (37.0-47.0); IMMATURE GRAN ABSOLUTE AUTO 0.03 K/mm3 (0.00-0.05); IMMATURE GRAN PERCENT AUTO 0.3 % (0.0-0.4); LYMPHOCYTES ABSOLUTE AUTO 2.3 K/mm3 (1.0-4.8); LYMPHOCYTES PERCENT AUTO 20.2 % (24.0-44.0); MEAN CORPUSCULAR HEMOGLOBIN 29.9 pg (28.0-32.0); MEAN CORPUSCULAR VOLUME 90.6 fl (83.0-99.0); MEAN PLATELET VOLUME 8.9 fl (9.4-12.3); MONOCYTES ABSOLUTE AUTO 0.7 K/mm3 (0.0-0.8); NEUTROPHILS ABSOLUTE AUTO 8.3 K/mm3 (1.8-7.7); NEUTROPHILS PERCENT AUTO 71.5 % (41.0-71.0); PLATELET COUNT,PLT 331 K/mm3 (150-400); RED BLOOD CELL COUNT 4.68 M/mm3 (4.10-5.30); WHITE BLOOD CELL COUNT,WBC 11.59 K/mm3 (3.9-11.3)
[2024-02-05] MEDS: Iopamidol 612 MG/ML 100 ML Bottle IVPUSH ONE (16:33)
[2024-02-05] MEDS: Iopamidol 612 MG/ML 30 ML SDV IVPUSH ONE (16:33)
[2024-02-05] MEDS: Sodium Chloride 0.9% 10 ML Syringe FLUSH ONE (16:33)
[2024-02-05] MEDS: Orphenadrine 100 MG Tab.ER PO ONE (17:11)
[2024-02-05 17:19] VITALS: BP 102/67; PULSE 72
[2024-02-05] MEDS: Nicotine 7 MG/24 Hr Patch TRDERM ONE (18:49)
== END 2024-02-05 20:32 ==
LOC: JD.ED 12:11
DX: M54.6 Pain in thoracic spine (principal); E66.9 Obesity, unspecified; Z90.49 Acquired absence of other specified parts of digestive tract; Z90.710 Acquired absence of both cervix and uterus; Z79.899 Other long term (current) drug therapy; Z88.8 Allergy status to other drugs, medicaments and biological substances; Z79.891 Long term (current) use of opiate analgesic
CPT/HCPCS: 36415; 51702; 72129; 72132; 80053; 85025; 96374; 96376; 99285; A9270; J1170; J3490; Q9967

== ENCOUNTER 2024-10-29 15:05 | Emergency (ER) | payer BC ==
[2024-10-29] MEDS ORDERED: Sodium Chloride 0.9% 10 ML Syringe FLUSH PRN (15:09)
[2024-10-29] MEDS: HYDROmorphone 1 MG/ML Syringe IVPUSH ONE ×6 (15:29→19:32)
[2024-10-29] MEDS: Iopamidol 612 MG/ML 100 ML Bottle IVPUSH ONE (15:31)
[2024-10-29] MEDS: Sodium Chloride 0.9% 100 ML IV SCH (15:31)
[2024-10-29] MEDS: Iopamidol 755 Mg/ML 100 ML Bottle IVPUSH ONE (15:32)
[2024-10-29 15:50] LABS: BASOPHILS PERCENT AUTO 0.5 % (0.0-1.0); EOSINOPHILS ABSOLUTE AUTO 0.1 K/mm3 (0.0-0.4); EOSINOPHILS PERCENT AUTO 1.1 % (0.0-6.0); HEMATOCRIT 39.2 % (37.0-47.0); HEMOGLOBIN 12.9 gm/dl (12.0-16.0); IMMATURE GRAN ABSOLUTE AUTO 0.01 K/mm3 (0.00-0.05); IMMATURE GRAN PERCENT AUTO 0.2 % (0.0-0.4); LYMPHOCYTES ABSOLUTE AUTO 2.4 K/mm3 (1.0-4.8); LYMPHOCYTES PERCENT AUTO 37.2 % (24.0-44.0); MEAN CORPUSCULAR HEMOGLOBIN 30.1 pg (28.0-32.0); MEAN CORPUSCULAR HGB CONC 32.9 g/dl (32.0-36.0); MEAN CORPUSCULAR VOLUME 91.4 fl (83.0-99.0); MEAN PLATELET VOLUME 8.7 fl (9.4-12.3); MONOCYTES ABSOLUTE AUTO 0.5 K/mm3 (0.0-0.8); MONOCYTES PERCENT AUTO 7.8 % (0.0-8.0); NEUTROPHILS ABSOLUTE AUTO 3.4 K/mm3 (1.8-7.7); NEUTROPHILS PERCENT AUTO 53.2 % (41.0-71.0); PLATELET COUNT,PLT 248 K/mm3 (150-400); RED BLOOD CELL COUNT 4.29 M/mm3 (4.10-5.30); WHITE BLOOD CELL COUNT,WBC 6.37 K/mm3 (3.9-11.3)
[2024-10-29 16:16] LABS: INR 1.03; PROTHROMBIN TIME 10.9 SECONDS (9.7-12.0)
[2024-10-29 16:17] LABS: PTT,PARTIAL THROMBOPLSTIN TIME 31.3 SECONDS (21.7-31.4)
[2024-10-29 16:22] LABS: A/G RATIO 1.1 (1-2); ALANINE AMINOTRANSFERASE,ALT 22 U/L (14-59); ALBUMIN 3.5 g/dl (3.4-5.0); ALKALINE PHOSPHATASE 134 U/L (46-116); ANION GAP 11.8 (5-15); ASPARTATE AMNIOTRANSFERASE,AST 16 U/L (15-37); BILIRUBIN TOTAL 0.3 mg/dL (0.2-1.0); BLOOD UREA NITROGEN,BUN 10 mg/dL (7-18); BUN/CREATININE RATIO 11.1 (14-18); CALCIUM 8.8 mg/dL (8.5-10.1); CARBON DIOXIDE,CO2 27 mEq/L (21-32); CHLORIDE,CL 103 mEq/L (98-107); CREATININE 0.9 mg/dL (0.55-1.02); ESTIMATED GFR 74 mL/min (>60); GLUCOSE RANDOM 95 mg/dL (70-99); POTASSIUM,K 3.8 mEq/L (3.5-5.1); PROTEIN TOTAL,TP 6.8 g/dl (6.4-8.2); SODIUM,NA 138 mEq/L (136-145)
[2024-10-29 16:25] LABS: TROPONIN I HIGH SENSITIVITY < 4 pg/mL (<=51)
[2024-10-29 16:39] LABS: APPEARANCE,URINE CLEAR (Clear); BILIRUBIN,URINE NEGATIVE (Negative); COLOR,URINE YELLOW (Yellow); GLUCOSE,URINE NEGATIVE (Negative); KETONES,URINE NEGATIVE (Negative); LEUKOCYTE ESTERASE,URINE NEGATIVE (Negative); NITRITE,URINE NEGATIVE (Negative); OCCULT BLOOD,URINE NEGATIVE (Negative); PROTEIN,URINE NEGATIVE (Negative); UROBILINOGEN,URINE 0.2 (0.2-1.0)
[2024-10-29] MEDS: Ketorolac 30 MG/ML SDV IVPUSH ONE (17:30)
[2024-10-29 19:49] VITALS: BP 121/61; PULSE 73
== END 2024-10-29 19:45 | disposition home or self-care (01) ==
LOC: JD.ED 15:05 → MERGE 15:05 → JD.ED 19:45
DX: R40.4 Transient alteration of awareness (principal); M54.50 Low back pain, unspecified; G89.29 Other chronic pain; Z88.8 Allergy status to other drugs, medicaments and biological substances
CPT/HCPCS: 36415; 51702; 70450; 70496; 70498; 80053; 81003; 84484; 85025; 85610; 85730; 93005; 96374; 96375; 96376; 99285; C1758; J1171; J1885; Q9967; 93010; 99284

== ENCOUNTER 2025-03-13 22:07 | Emergency (ER) | payer BC ==
[2025-03-13 22:43] VITALS: BP 161/98
[2025-03-13] MEDS ORDERED: Naloxone 0.4 MG/ML SDV IVPUSH PRN (22:55)
[2025-03-13] MEDS: droPERidol 2.5 MG/ML SDV IV STA (23:09)
[2025-03-14 00:15] VITALS: PULSE 75
== END 2025-03-13 23:00 | disposition home or self-care (01) ==
LOC: JD.ED 22:07
DX: G89.28 Other chronic postprocedural pain (principal); M79.2 Neuralgia and neuritis, unspecified; E66.9 Obesity, unspecified; Z79.899 Other long term (current) drug therapy; Z88.8 Allergy status to other drugs, medicaments and biological substances; Z90.710 Acquired absence of both cervix and uterus; Z90.49 Acquired absence of other specified parts of digestive tract; Z68.25 Body mass index [BMI] 25.0-25.9, adult
CPT/HCPCS: 96361; 96374; 96375; 99283; J1171; J1790; J7030

== ENCOUNTER 2025-03-14 18:49 | Emergency (ER) | payer BC ==
[2025-03-14] MEDS ORDERED: Naloxone 0.4 MG/ML SDV IVPUSH PRN (19:13)
[2025-03-14 19:51] LABS: BASOPHILS ABSOLUTE AUTO 0.0 K/mm3 (0.0-0.2); BASOPHILS PERCENT AUTO 0.1 % (0.0-1.0); EOSINOPHILS ABSOLUTE AUTO 0.0 K/mm3 (0.0-0.4); EOSINOPHILS PERCENT AUTO 0.0 % (0.0-6.0); IMMATURE GRAN ABSOLUTE AUTO 0.05 K/mm3 (0.00-0.05); IMMATURE GRAN PERCENT AUTO 0.3 % (0.0-0.4); LYMPHOCYTES ABSOLUTE AUTO 1.3 K/mm3 (1.0-4.8); LYMPHOCYTES PERCENT AUTO 8.7 % (24.0-44.0); MEAN PLATELET VOLUME 8.7 fl (9.4-12.3); MONOCYTES ABSOLUTE AUTO 0.8 K/mm3 (0.0-0.8); MONOCYTES PERCENT AUTO 5.0 % (0.0-8.0); NEUTROPHILS ABSOLUTE AUTO 13.1 K/mm3 (1.8-7.7); NEUTROPHILS PERCENT AUTO 85.9 % (41.0-71.0); NRBC ABSOLUTE 0.00 (0.00-0.02); NRBC PERCENT 0.0 % (0.0-0.2); PLATELET COUNT,PLT 326 K/mm3 (150-400); RED BLOOD CELL COUNT 4.27 M/mm3 (4.10-5.30); WHITE BLOOD CELL COUNT,WBC 15.23 K/mm3 (3.9-11.3)
[2025-03-14] MEDS: droPERidol 2.5 MG/ML SDV IV STA (20:02)
[2025-03-14 20:12] LABS: A/G RATIO 1.0 (1-2); ALANINE AMINOTRANSFERASE,ALT 26 U/L (14-59); ASPARTATE AMNIOTRANSFERASE,AST 13 U/L (15-37); BILIRUBIN TOTAL 0.3 mg/dL (0.2-1.0); BLOOD UREA NITROGEN,BUN 9 mg/dL (7-18); CARBON DIOXIDE,CO2 27 mEq/L (21-32); CHLORIDE,CL 105 mEq/L (98-107); CREATINE KINASE,CK 27 U/L (26-192); CREATININE 0.7 mg/dL (0.55-1.02); ESTIMATED GFR 100 mL/min (>60); GLUCOSE RANDOM 146 mg/dL (70-99); POTASSIUM,K 3.8 mEq/L (3.5-5.1); PROTEIN TOTAL,TP 6.9 g/dl (6.4-8.2); SODIUM,NA 142 mEq/L (136-145)
[2025-03-14 20:15] LABS: INR 1.01
[2025-03-14] MEDS: Dexamethasone 4 MG/ML SDV IVPUSH STA (21:25)
[2025-03-14 21:28] VITALS: BP 128/63; PULSE 67
== END 2025-03-14 21:30 | disposition home or self-care (01) ==
LOC: JD.ED 18:49
DX: G89.29 Other chronic pain (principal); M54.50 Low back pain, unspecified; F41.9 Anxiety disorder, unspecified; E66.9 Obesity, unspecified; Z88.8 Allergy status to other drugs, medicaments and biological substances; Z79.899 Other long term (current) drug therapy; Z90.49 Acquired absence of other specified parts of digestive tract; Z90.710 Acquired absence of both cervix and uterus; Z68.24 Body mass index [BMI] 24.0-24.9, adult
CPT/HCPCS: 36415; 80053; 82550; 83735; 85025; 85610; 86140; 96361; 96374; 96375; 99283; J1100; J1171; J1790; J7030